=== PATIENT | male | born 1945 | race Two or more races ===

== ENCOUNTER 2024-09-16 07:53 | Inpatient (IN) | payer OTHER, MEDICARE ==
[2024-09-16] VITALS (7 sets, daily range): BP systolic 104–112; BP diastolic 50–54; PULSE 56–82; RESP 25–28; O2SAT 92–99
[~2024-09-16] VITALS: Ht 162.6 cm; Wt 61.2 kg
--- NOTE | 2024-09-16 08:32 | ED.PDOC ---
SOB-HPI HPI Comments 79 year old female brought in by EMS presents to the ED with a chief complaint of shortness of breath. Patient is transferred from [facility] for shortness of breath and elevated Troponin. Patient's initial O2 sat was 80%, was given 2 med neb treatments. PMHx CHF, COPD. No other symptoms or modifying factors present at this time. Chief Complaint: Shortness of Breath Time Seen by MD: 07:58 Reviewed notes: Medications, Allergies Information Source: Patient, Emergency Med Personnel Mode of Arrival: EMS Severity: Moderate Timing: Days Duration: Since onset PE Risk Factors: None History of: COPD, CHF Prehospital treatment: Oxygen, Treatment (med neb) Radiation: No Radiation Past Medical History PAST MEDICAL HISTORY: CHF, COPD Surgical History: Unknown Family History Family History: Unknown Social History Smoker: Non-Smoker Alcohol: Denies ETOH Use Drugs: Denies Drug Use Lives In: Home Constitutional: reports: fatigue; denies: chills, diaphoresis, fever, malaise, sweats, weakness, others EENTM: denies: blurred vision, double vision, ear bleeding, ear discharge, ear drainage, ear pain, ear ringing, eye pain, eye redness, hearing loss, mouth pain, mouth swelling, nasal discharge, nose bleeding, nose congestion, nose pain, photophobia, tearing, throat pain, throat swelling, voice changes, others Respiratory: reports: shortness of breath; denies: cough, hemoptysis, orthopnea, SOB at rest, SOB with excertion, stridor, wheezing, others Cardiovascular: reports: edema (bilateral lower extremeties ); denies: chest pain, dizzy spells, diaphoresis, Dyspnea on exertion, irregular heart beat, left arm pain, lightheadedness, palpitations, PND, syncope, others Gastrointestinal: denies: abdomen distended, abdominal pain, blood streaked bowels, constipated, diarrhea, dysphagia, difficulty swallowing, hematemesis, melena, nausea, poor appetite, poor fluid intake, rectal bleeding, rectal pain, vomiting, others Genitourinary: denies: burning, dysuria, flank pain, frequency, hematuria, incontinence, penile discharge, penile sore, pain, testicle pain, testicle swelling, urgency, others Neurological: denies: dizziness, fainting, headache, left sided numbness, left sided weakness, numbness, paresthesia, pre-existing deficit, right sided numbness, right sided weakness, seizure, speech problems, tingling, tremors, weakness, others Musculoskeletal: denies: back pain, gout, joint pain, joint swelling, muscle pain, muscle stiffness, neck pain, others Integumetry: denies: bruises, change in color, change in hair/nails, dryness, laceration, lesions, lumps, rash, wounds, others Allergic/Immunocompromised: denies: Difficulty Healing, Frequent Infections, Hives, Itching, others Hematologic/Lymphatic: denies: anemia, blood clots, easy bleeding, easy bruising, swollen glands, others Endocrine: denies: excessive hunger, excessive sweating, excessive thirst, excessive urination, flushing, intolerance to cold, intolerance to heat, unexplained weight gain, unexplained weight loss, others Psychiatric: denies: anxiety, bipolar disorder, depression, hopeless, panic disorder, schizophrenia, sleepless, suicidal, others All Other Systems: Reviewed and Negative Physical Exam General Appearance: Moderate Distress HEENT: Normal ENT Inspection, Pharynx Normal, TMs Normal Neck: Full Range of Motion, Non-Tender, Normal, Normal Inspection Respiratory: Accessory Muscle Use, Respiratory Distress, Other (Coarse breath sounds) Cardiovascular: No Edema, No JVD, No Murmur, No Gallop, Normal Peripheral Pulses, Regular Rate/Rhythm Breast Exam: Deferred Gastrointestinal: No Organomegaly, Non Tender, No Pulsatile Mass, Normal Bowel Sounds, Soft Genitalia: Deferred Pelvic: Deferred Rectal: Deferred Extremities: Pedal edema, Swelling (Bilateral lower extremity) Musculoskeletal : Apperance: Normal Neurologic: Alert, layboy tender II-XII nml as Tested, No Motor Deficits, Normal Affect, Normal Mood, No Sensory Deficits Cerebellar Function: NOT DONE Reflexes: NOT DONE Skin: Pallor Peripheral Pulses: 3+ Radial (R), 3+ Radial (L) Lymphatic: No Adenopathy Was a procedure done? Was a procedure done?: No Differential Dx Differential Diagnosis: Anxiety, Asthma, Bronchitis, CHF, COPD X-Ray, Labs, Meds, VS Vital Signs Date Time Temp Pulse Resp B/P (MAP) Pulse Ox O2 Delivery O2 Flow Rate FiO2 09/16/24 10:05 144/77 09/16/24 09:05 82 30 09/16/24 08:20 64 95 Nasal Cannula* 6 44 09/16/24 07:55 125 09/16/24 07:53 Nasal Cannula* 2 28 09/16/24 07:53 98.1 66 16 126/78 (94) 95 09/16/24 07:53 Nasal Cannula* 2 28 Lab Test 09/16/24 10:07 09/16/24 06:40 Range/Units Blood Gas Specimen Type Arterial Blood Gas Sample Site Left radial Blood Gas Patient Temperature 37.0 Arterial Blood Date Drawn [id number] Arterial Blood pH 7.379 7.350-7.450 Arterial Blood Partial Pressure CO2 39.7 35.0-48.0 mmHg Arterial Blood Partial Pressure O2 103.1 83.0-108.0 mmHg Arterial Blood HCO3 22.9 21.0-28.0 mmol/L Arterial Blood Oxygen Saturation 98.2 H 94.0-98.0 % Arterial Blood Base Excess -2.0 -2.0-3.0 mmol/L Arterial Blood Oxyhemoglobin 96.6 94.0-98.0 % Arterial Blood Carboxyhemoglobin 1.1 0.5-1.5 % Arterial Blood Methemoglobin 0.5 0.0-1.5 % Barry Test Yes Blood Gas Total Hemoglobin 14.10 13.5-17.5 g/dL Blood Gas Set Respiration Rate 12.0 Blood Gas Modality Mask - bipap Blood Gas Spontaneous Rate 28 FiO2 % 30.0 Blood Gas EPAP 7 Blood Gas IPAP 12 Troponin I High Sensitivity Pending Current Medications Medications (Trade) Dose Ordered Sig/Wally Route Start Time Stop Time Status Last Admin Furosemide (Lasix Injection) 40 mg ONCE ONCE IV 09/16/24 08:15 09/16/24 08:16 DC 09/16/24 10:05 Patient alert. Complaining of shortness a breath. Came from [facility] for possible NSTEMI. Vitals stable. Currently on oxygen. Was given Lasix. Reviewed his chart. Explained to the patient. Continue cardiac monitoring. Time of 1ST Reevaluation: 08:28 Reevaluation 1ST: Unchanged Patient Education/Counseling: Diagnosis, Treatment, Prognosis Family Education/Counseling: No Family Present Additional Information I reviewed the following notes from patient's past medical encounters: The following tests were ordered, and results were reviewed by me: TROP -x3, EKG -x3, ABG W/ CO-OX Additional Information was gathered from interviewing the following independent historians: EMS I discussed treatment and results with medical personnel and: patient Departure 1 Departure Time of Disposition: 10:31 Impression: Primary Impression: CHF (congestive heart failure) Qualified Codes: I50.43 - Acute on chronic combined systolic (congestive) and diastolic (congestive) heart failure Additional Impression: NSTEMI (non-ST elevated myocardial infarction) Disposition: 09 ADMITTED INPATIENT Admit to: Med Surg Condition: Guarded Critical Care Note Critical Care Time?: Yes (45 min-critical care time only) Stability Stability form required: No Heart Score Heart Score: Heart Score Response (Comments) Value History Slightly Suspicious 0 EKG Normal 0 Age >65 2 Risk Factors >3 or Hx ASHD 2 Troponin 1-2 x's Normal limit 1 Total 5 I personally scribed for ELINA HART MD ([email or web address]) on 09/16/24 at 08:32. Electronically submitted by Lauren Aguilar ([email or web address]). I personally scribed for ELINA HART MD ([email or web address]) on 09/16/24 at 09:11. Electronically submitted by Lauren Aguilar ([email or web address]). ELINA HART MD Sep 16, 2024 08:32
[2024-09-16] MEDS: FUROSEMIDE 40 MG/4 ML VIAL IV ONE (10:05)
--- NOTE | 2024-09-16 10:53 | DVH ---
CHEST RADIOGRAPH Indication: sob Technique: Single frontal view of the chest was obtained COMPARISON: None FINDINGS: Lines and Tubes: Median sternotomy. Lungs: Congestion Pleura: No effusion. No pneumothorax. Cardiomediastinal contours: Unremarkable Bones: Unremarkable IMPRESSION: Congestion
[2024-09-16 11:47] LABS: Urine Bacteria None Seen /hpf (None Seen)
[2024-09-16 12:21] LABS: Urine Blood 2+ /uL (Negative); Urine Clarity Clear (Clear); Urine Color Light-Yellow (Yellow); Urine Protein, UAD Negative (Negative); Urine Specific Gravity 1.014 (1.001-1.035); Urine Squamous Epithelial Cell FEW /hpf (<5); Urine Urobilinogen Normal (Negative); Urine WBC <1 /hpf (0 - 3)
[2024-09-16] MEDS ORDERED: LISI20TA56 PO (13:42)
[2024-09-16] MEDS ORDERED: CLOP75TA70 PO (13:42)
[2024-09-16] MEDS ORDERED: ATOR40TA52 PO (13:42)
[2024-09-16] MEDS ORDERED: ASPI-325 PO (13:42)
[2024-09-16] MEDS ORDERED: MORPHINE SULFATE INJ 2 MG/ml SYRG IV PRN (13:45)
[2024-09-16] MEDS ORDERED: ALBUTEROL SULF 2.5 MG/0.5ML(0.5%) NEB SOLN NEB PRN (13:45)
[2024-09-16] MEDS ORDERED: IPRATROPIUM BROM 0.5 MG/2.5ML INH SOL NEB PRN (13:45)
[2024-09-16] MEDS ORDERED: ONDANSETRON HCL 4 MG/2 ML VIAL IV PRN (13:45)
[2024-09-16] MEDS ORDERED: ACETAMINOPHEN 325 MG TAB PO PRN (13:45)
[2024-09-16] MEDS ORDERED: NITROGLYCERIN 0.4 MG SL TAB SL PRN (13:45)
--- NOTE | 2024-09-16 13:49 | DVHHP2 ---
History of Present Illness Reason for Visit: Shortness of breath History of Present Illness Sofya Flores is a 79-year-old male with past medical history of hypertension, COPD, CHF, [place], CVA with right-sided weakness, seizures, and CAD with status post CABG x2 who presents to the ED as a transfer from [facility] for david rtness of breaths and elevated troponins. Patient was hospitalized yesterday at [facility] for SOB. Upon examination patient has delayed speech but is alert. Patient denies any chest pain, nausea, vomiting, diarrhea, and abdominal pain. Cardiovascular: CAD, CHF, HTN, TN Pulmonary: COPD HOT BLASTER: Seizure Past Medical History Seizure CVA with right-sided weakness Past Surgical History: CABG Smoke: <1 pack per day Domestic Violence: Neg Review of Systems Constitutional: No: Fever, Chills, Sweats, Weakness, Malaise, Other Eyes: No: Pain, Vision change, Conjunctivae inflammation, Eyelid inflammation, Other, Redness ENT: No: Ear pain, Ear discharge, Nose pain, Nose discharge, Nose congestion, Mouth pain, Mouth swelling, Throat pain, Throat swelling, Other Respiratory: Shortness of breath; No: Cough, Dry, SOB with excertion, Wheezing, Hemoptysis, Pleuritic Pain, Sputum, Wheezing, Other Cardiovascular: No: Chest Pain, Palpitations, Orthopnea, Paroxysmal Noc. Dyspnea, Edema, Lt Headedness, Other Gastrointestinal: No: Nausea, Vomiting, Abdominal Pain, Diarrhea, Constipation, Melena, Hematochezia, Other Genitourinary: No Dysuria, No Frequency, No Incontinence, No Hematuria, No Retention, No Other Musculoskeletal: No: other, neck pain, shoulder pain, arm pain, back pain, hand pain, leg pain, foot pain Skin: No: Rash, Lesions, Jaundice, Bruising, Other Allergies: Coded Allergies: Erythromycin (Verified Allergy, Unknown, 09/16/24) Penicillins (Verified Allergy, Unknown, 09/16/24) Tetracycline (Verified Allergy, Unknown, 09/16/24) Exam Vital Signs Vital Signs Date Time Temp Pulse Resp B/P (MAP) Pulse Ox O2 Delivery O2 Flow Rate FiO2 09/16/24 13:00 58 20 125/55 (78) 99 09/16/24 12:12 Facial BiPAP Mask 30 09/16/24 08:20 6 09/16/24 07:53 98.1 General Appearance: Alert, Cooperative, mild distress Respiratory: Normal air movement Cardiovascular: Normal S1, Normal S2, No murmurs Abdominal: Soft Extremities: No clubbing, No cyanosis, Other (2+ pitting edema bilateral lower extremities) Skin: No significant lesion Neuro: Sensation intact Labs/Xrays Labs Test 09/16/24 13:15 09/16/24 11:20 09/16/24 10:07 Range/Units Urine Color Light-yellow Yellow Urine Clarity Clear Clear Urine pH 5.0 5.0-9.0 Urine Specific [place] 1.014 1.001-1.035 Urine Protein Negative Negative Urine Ketones Negative Negative Urine Blood 2+ H Negative /uL Urine Nitrite Negative Negative Urine Bilirubin Negative Negative Urine Urobilinogen Normal Negative mg/dL Urine Leukocyte Esterase Negative Negative /uL Urine RBC 28 0 - 3 /hpf Urine WBC <1 0 - 3 /hpf Urine Squamous Epithelial Cells Few <5 /hpf Urine Bacteria None seen None Seen /hpf Urine Glucose Normal Normal mg/dL Blood Gas Specimen Type Arterial Blood Gas Sample Site Left radial Blood Gas Patient Temperature 37.0 Arterial Blood Date Drawn [id number] Arterial Blood pH 7.379 7.350-7.450 Arterial Blood Partial Pressure CO2 39.7 35.0-48.0 mmHg Arterial Blood Partial Pressure O2 103.1 83.0-108.0 mmHg Arterial Blood HCO3 22.9 21.0-28.0 mmol/L Arterial Blood Oxygen Saturation 98.2 H 94.0-98.0 % Arterial Blood Base Excess -2.0 -2.0-3.0 mmol/L Arterial Blood Oxyhemoglobin 96.6 94.0-98.0 % Arterial Blood Carboxyhemoglobin 1.1 0.5-1.5 % Arterial Blood Methemoglobin 0.5 0.0-1.5 % Barry Test Yes Blood Gas Total Hemoglobin 14.10 13.5-17.5 g/dL Blood Gas Set Respiration Rate 12.0 Blood Gas Modality Mask - bipap Blood Gas Spontaneous Rate 28 FiO2 % 30.0 Blood Gas EPAP 7 Blood Gas IPAP 12 ORDERING PHYSICIAN: ELINA HART MD PROCEDURE(s): CXRP - CHEST PORTABLE REASON: sob ORDER NUMBER(s): [id number], ACCESSION NUMBER(s): [id number] CHEST RADIOGRAPH Indication: sob Technique: Single frontal view of the chest was obtained COMPARISON: None FINDINGS: Lines and Tubes: Median sternotomy. Lungs: Congestion Pleura: No effusion. No pneumothorax. Cardiomediastinal contours: Unremarkable Bones: Unremarkable IMPRESSION: Congestion Assessment/Plan Assessment/Plan Assessment/Plan: Acute on chronic COPD exacerbation vs CHF exacerbation BiPAP Lasix Mims catheter Echo UA Chest x-ray BNP ABG EKG Troponin EKG Labs A.m. labs Chest x-ray a.m. IV steroids Cardiology consult Chronic Hypertension continue home meds History of [place] History of CAD status post CABG x2 Continue home medications History of CVA with right-sided weakness Continue home medications Monitor History of seizure with no recent seizure reported Monitor CVA continue home meds monitor FEN/PPX NPO HL DVT ppx lovenox PUD ppx famotidine Discussed plan of care with nurse Home medications reconciled Admit to tele Plan discussed with: Patient My Orders Orders - MELISSA SOLIZ RAILROAD OPERATOR Procedure Category Date Status Time Abg W/ Co-Ox RT 09/16/24 Transmitted 13:35 Admit ADMIT 09/16/24 Transmitted 13:35 Allergies LUIS CARLOS 09/16/24 Transmitted 13:35 Code Status CODE 09/16/24 Transmitted 13:35 Ondansetron Hcl PHA 09/16/24 Transmitted (Zofran) 13:45 Complete Blood Count LAB 09/17/24 Verified 04:00 Comprehensive LAB 09/17/24 Verified Metabolic Panel 04:00 Npo (Nothing By DIET 09/16/24 Transmitted Mouth) Diet Dinner Enoxaparin Sodium PHA 09/17/24 Transmitted (Lovenox) 10:00 Acetaminophen Tablet PHA 09/16/24 Transmitted (Tylenol Tablet) 13:45 Nitroglycerin PHA 09/16/24 Transmitted Sublingual (Ntrostat 13:45 Morphine Sulfate PHA 09/16/24 Transmitted Injection 13:45 Stat Ekg For Chest [facility] 09/16/24 Transmitted Pain 13:35 Notify Md Of Changes [facility] 09/16/24 Transmitted From Base 13:35 Learning And Development Coordinator For [facility] 09/16/24 Transmitted 24 Hours 13:35 Emergency Dysrhythmia [facility] 09/16/24 Transmitted Protocol 13:35 Rhythm Strips Once [facility] 09/16/24 Transmitted Every Shift 13:35 Oxygen By Nasal RT 09/16/24 Transmitted Cannula 13:35 Albuterol Medneb PHA 09/16/24 Transmitted (Ventolin Medneb) 18:00 Albuterol Medneb PHA 09/16/24 Transmitted (Ventolin Medneb) 13:45 Ipratropium Medneb PHA 09/16/24 Transmitted (Atrovent Medneb) 18:00 Ipratropium Medneb PHA 09/16/24 Transmitted (Atrovent Medneb) 13:45 Date of Service: Sep 16, 2024 Billing Provider: MELISSA SOLIZ Common Visit Codes: [id number] INP/OBS CARE (HIGH) MELISSA SOLIZ Sep 16, 2024 13:49
[2024-09-16 13:55] LABS: Basophils # (auto) 0 10 ^3/uL (0-0.2); Basophils % (auto) 0.2 % (0.0-2.0); Eosinophils # (auto) 0 10 ^3/uL (0-0.8); Hematocrit 39.9 % (41.0-53.0); Hemoglobin 12.7 g/dL (13.5-17.5); Lymphocytes # (auto) 0.5 10 ^3/uL (0.4-5.4); Lymphocytes % (auto) 3.1 % (10.0-50.0); Mean Corpuscular Hemoglobin 27.2 pg (28.0-32.0); Mean Corpuscular Hgb Conc. 31.9 g/dL (32.0-36.0); Mean Corpuscular Volume 85.2 fL (80.0-100.0); Monocytes # (auto) 0.6 10 ^3/uL (0-1.3); Monocytes % (auto) 3.9 % (0.0-12.0); Neutrophils # (auto) 14.6 10 ^3/uL (1.6-8.6); Neutrophils % (auto) 92.8 % (37.0-80.0); Nucleated Red Blood Cells % 0.1 %; Platelet Count (auto) 249 10^3/uL (140-450); Red Blood Cells 4.69 10^6/uL (4.5-5.90); Red Cell Distribution Width 17.2 % (11.8-14.3); White Blood Cell 15.8 10^3/uL (4.4-10.8)
[2024-09-16 14:17] LABS: Chloride 104 mmol/L (98-107); Potassium 4.2 mmol/L (3.5-5.1); Sodium 140 mmol/L (136-145)
[2024-09-16 14:18] LABS: Anion Gap 9 (5-15); Carbon Dioxide 27 mmol/L (20-31)
[2024-09-16 14:22] LABS: Calcium 8.6 mg/dL (8.7-10.4)
[2024-09-16 14:23] LABS: BUN/Creatinine Ratio 25.8 (10.0-20.0)
[2024-09-16 14:24] LABS: Blood Urea Nitrogen 33 mg/dL (9-23); Glucose 142 mg/dL (74-106)
[2024-09-16 14:37] LABS: Base Excess 1.1 mmol/L (-2.0-3.0)
[2024-09-16] MEDS: ENOXAPARIN SOD 40 MG/0.4 ML SYRINGE SC ONE (15:49)
--- NOTE | 2024-09-16 16:36 | DVHSR ---
APPROVED REPORT EXAM: Two-dimensional and M-mode echocardiogram with Doppler and color Doppler. Blood Pressure: 144/77 mmHg INDICATION EF Surgery/Intervention CABG: RISK FACTORS Height: 5'6", Weight: 134 DIMENSIONS LVDd5.7 (3.8-5.7cm)LA (2D)4.3 (1.9-4.0cm)Aortic Root3.6 (2.0-3.7cm) LVDs5.3 (2.5-4.0cm)LA (MM) (1.9-4.0cm)Aortic Cusp Exc2.1 (1.5-2.0cm) EF (%) 20.0 (55-70%)Rt. Atrium5.6 (1.9-4.0cm)Asc. Aorta cm IVSd1.1 (0.7-1.1cm)RV (D)4.9 (1.8-2.4cm) PWd1.1 (0.7-1.1cm) Mitral Valve MitralMitral Stenosis E wave0.76m/sMV Mean GR.mmHg A wave0.32m/sMV Peak GR.mmHg E/A ratio2.42D MVAcm2 DECEL [id number] 1/2 Timems Aortic Valve Aortic ValveAortic Stenosis V10.88m/Radha Mean GR.4mmHg V21.34m/Radha Peak GR.7mmHg LVOT Diameter2.5 (1.8-2.4cm)Doppler AVA3.22cm2 Pulmonic Valve V20.96m/s Tricuspid Valve TR Velocity3.08m/s [id number] Conclusion severe chf lvef 20-25% by visual estimate dilated LV dilated RV< with dsyfunction noted biatrial enlargement moderate tricuspid regurg mild to moderate mitral regurg mild aortic regurg
[2024-09-16] MEDS: IPRATROPIUM BROM 0.5 MG/2.5ML INH SOL NEB SCH (18:53)
[2024-09-16] MEDS: ALBUTEROL SULF 2.5 MG/0.5ML(0.5%) NEB SOLN NEB SCH (18:54)
[2024-09-16] MEDS: methylPREDNISolone SOD SUCC 40 MG/ML VL IV SCH (22:56)
[2024-09-17] VITALS (15 sets, daily range): BP systolic 120–153; BP diastolic 59–82; PULSE 60–75; RESP 16–20; TEMP 97.7–98.8; O2SAT 73–100
--- NOTE | 2024-09-17 05:44 | DVH ---
CHEST RADIOGRAPH Indication: sob Technique: Single frontal view of the chest was obtained COMPARISON: XY CHEST PORTABLE on DOS: 09/16/24 FINDINGS: Lines and Tubes: Median sternotomy Lungs: Congestion Pleura: No effusion. No pneumothorax. Cardiomediastinal contours: Cardiomegaly Bones: Unremarkable IMPRESSION: Mild congestion, unchanged
[2024-09-17 06:57] LABS: Basophils # (auto) 0 10 ^3/uL (0-0.2); Basophils % (auto) 0.1 % (0.0-2.0); Eosinophils # (auto) 0 10 ^3/uL (0-0.8); Hematocrit 37.5 % (41.0-53.0); Hemoglobin 12.1 g/dL (13.5-17.5); Lymphocytes # (auto) 0.4 10 ^3/uL (0.4-5.4); Lymphocytes % (auto) 1.9 % (10.0-50.0); Mean Corpuscular Hemoglobin 27.2 pg (28.0-32.0); Mean Corpuscular Hgb Conc. 32.2 g/dL (32.0-36.0); Mean Corpuscular Volume 84.6 fL (80.0-100.0); Monocytes # (auto) 0.8 10 ^3/uL (0-1.3); Monocytes % (auto) 3.6 % (0.0-12.0); Neutrophils # (auto) 20.6 10 ^3/uL (1.6-8.6); Neutrophils % (auto) 94.4 % (37.0-80.0); Platelet Count (auto) 264 10^3/uL (140-450); Red Blood Cells 4.44 10^6/uL (4.5-5.90); Red Cell Distribution Width 17.2 % (11.8-14.3); White Blood Cell 21.8 10^3/uL (4.4-10.8)
[2024-09-17 07:23] LABS: Alanine Aminotransferase 33 U/L (7-40); Anion Gap 8 (5-15); BUN/Creatinine Ratio 32.5 (10.0-20.0); Carbon Dioxide 28 mmol/L (20-31); Potassium 4.5 mmol/L (3.5-5.1); Sodium 143 mmol/L (136-145)
[2024-09-17 07:31] LABS: Alkaline Phosphatase 210 U/L (46-116); Aspartate Aminotransferase 45 U/L (13-40); Blood Urea Nitrogen 40 mg/dL (9-23); Calcium 8.5 mg/dL (8.7-10.4); Chloride 107 mmol/L (98-107); Glucose 123 mg/dL (74-106)
[2024-09-17 07:32] LABS: Albumin 2.9 g/dL (3.2-4.8); Bilirubin, Total 1.3 mg/dL (0.2-1.0); Total Protein 5.6 g/dL (5.7-8.2)
[2024-09-17] MEDS ORDERED: PNEUMOCOCCAL VACC POLYS 25 MCG/0.5 ML VIAL IM ONE (10:00)
[2024-09-17] MEDS ORDERED: ENOXAPARIN SOD 40 MG/0.4 ML SYRINGE SC SCH (10:00)
[2024-09-17] MEDS ORDERED: levoFLOXacin 250 MG TAB PO SCH (10:00)
[2024-09-17] MEDS: FAMOTIDINE (10MG/ML) 2ML VL IV SCH (10:34)
[2024-09-17] MEDS: FUROSEMIDE 40 MG/4 ML VIAL IV SCH (10:35)
--- NOTE | 2024-09-17 12:22 | DVHPN2 ---
Subjective Reports sob and ble swelling. Reviewed: Care Plan, Labs, Medications Changes from previous H/P or p: No Changes General: Per HPI Eyes: No Pain, No Vision change, No Conjunctivae inflammation, No Eyelid inflammation, No Other, No Redness ENT: No Ear pain, No Ear discharge, No Nose pain, No Nose discharge, No Nose congestion, No Mouth pain, No Mouth swelling, No Throat pain, No Throat swelling, No Other Cardiovascular: No Chest Pain, No Palpitations, No Orthopnea, No Paroxysmal Noc. Dyspnea, No Edema, No Lt Headedness, No Other Respiratory: No Cough, No Dry; Shortness of breath; No SOB with excertion, No Wheezing, No Hemoptysis, No Pleuritic Pain, No Sputum, No Other Gastrointestinal: No Nausea, No Vomiting, No Abdominal Pain, No Diarrhea, No Constipation, No Melena, No Hematochezia, No Other Genitourinary: No Dysuria, No Frequency, No Incontinence, No Hematuria, No Retention, No Other Musculoskeletal: No other, No neck pain, No shoulder pain, No arm pain, No back pain, No hand pain, No leg pain, No foot pain Skin: No Rash, No Lesions, No Jaundice, No Bruising, No Other Objective Vitals Vital Signs Date Time Temp Pulse Resp B/P (MAP) Pulse Ox O2 Delivery O2 Flow Rate FiO2 09/17/24 11:48 97.8 64 18 153/64 (93) 97 97.8 09/17/24 11:21 Nasal Cannula* 3 32 Intake/Output Intake and Output 09/17/24 07:00 Intake Total 0 ml Output Total 3000 ml Balance -3000 ml Intake Oral 0 ml Output Urine Total 3000 ml General Appearance: Alert, Oriented X3, Cooperative, No acute distress HEENT: Atraumatic, PERRLA Lungs: Clear to auscultation, Normal air movement Cardiovascular: Normal S1, Normal S2 Abdomen: Normal bowel sounds, Soft, No tenderness, No hepatospenomegaly Genitourinary: No Apparent Abnormalities Extremities: Normal pulses, Other (Edema BLE) Skin: Dry, Intact Psych/Mental Status: Mental status NL, Mood NL Medications Current Medications Medications Dose Ordered Sig/Wally Route Start Time Stop Time Status Last Admin Dose Admin Ondansetron HCl 4 mg Q4HP PRN IV 09/16/24 13:45 Enoxaparin Sodium 40 mg DAILY SC 09/17/24 10:00 Hold Acetaminophen 650 mg Q6HP PRN PO 09/16/24 13:45 Nitroglycerin 0.4 mg Q5MINP PRN SL 09/16/24 13:45 Morphine Sulfate 2 mg Q30M PRN IV 09/16/24 13:45 Albuterol 2.5 mg Q6HWA NEB 09/16/24 18:00 09/17/24 11:21 2.5 MG Albuterol 2.5 mg Q4HPRN PRN NEB 09/16/24 13:45 Ipratropium [place] 0.5 mg Q6HWA NEB 09/16/24 18:00 09/17/24 11:21 0.5 MG Ipratropium [place] 0.5 mg Q4HPRN PRN NEB 09/16/24 13:45 Furosemide 40 mg DAILY IV 09/17/24 10:00 09/17/24 10:35 40 MG Famotidine 20 mg DAILY IV 09/17/24 10:00 09/17/24 10:34 20 MG Levofloxacin/ Dextrose 100 ml @ 100 mls/hr DAILY IV 09/18/24 10:00 UNV Laboratory Results Laboratory Tests 09/17/24 06:17 Chemistry Test 09/16/24 13:15 09/17/24 06:17 Calcium Level 8.6 mg/dL (8.7-10.4) L 8.5 mg/dL (8.7-10.4) L Albumin 2.9 g/dL (3.2-4.8) L Total Protein 5.6 g/dL (5.7-8.2) L Cardiac Markers Test 09/16/24 13:15 B-Type Natriuretic Peptide 4786.70 pg/mL (0-100) LFT Test 09/17/24 06:17 Alanine Aminotransferase (ALT) 33 U/L (7-40) Alkaline Phosphatase 210 U/L (46-116) H Aspartate Amino Transferase (AST) 45 U/L (13-40) H Total Bilirubin 1.3 mg/dL (0.2-1.0) H Urinalysis Test 09/16/24 11:20 Urine Color Light-yellow (Yellow) Urine Clarity Clear (Clear) Urine pH 5.0 (5.0-9.0) Urine Specific [place] 1.014 (1.001-1.035) Urine Protein Negative (Negative) Urine Ketones Negative (Negative) Urine Blood 2+ /uL (Negative) H Urine Nitrite Negative (Negative) Urine Bilirubin Negative (Negative) Urine Urobilinogen Normal mg/dL (Negative) Urine Leukocyte Esterase Negative /uL (Negative) Urine RBC 28 /hpf (0 - 3) Urine WBC <1 /hpf (0 - 3) Urine Squamous Epithelial Cells Few /hpf (<5) Urine Bacteria None seen /hpf (None Seen) Urine Glucose Normal mg/dL (Normal) Blood Gas Results Test 09/16/24 14:32 Arterial Blood pH 7.438 (7.350-7.450) FiO2 % 30.0 Labs and/or images reviewed: Labs reviewed by me, Image(s) reviewed by me Assessment/Plan Assessment/Plan Impression: -Acute systolic HF -Hx of CAD with CABG 2014 -NSTEMI II -Nicotine dependence -Marijuana use -Dyslipidemia -Rule out Sepsis -Acute hypoxic respiratory failure Plan: -Cardiology Consult -Echo reviewed -Start Entresto, Toprol -IV Lasix -Start Levaquin -Bronchodilators, pulmicort -Repeat labs, cxray in am Total time spent with patient discussing and formulating plan of care: 35 minutes. This medical document was created using an electronic medical record system with [employer] Mess[employer] dictation system. Although this document has been carefully reviewed, there may still be some phonetic and typographical errors. These areas are purely typographical due to imperfections of the software programs, and do not reflect any compromise in the patient's medical care. Plan discussed with: Patient, Other (RN) My Orders Orders - MARBELLA BUSCH MATTRESS INSPECTOR Procedure Category Date Status Time Cardiac DIET 09/17/24 Transmitted Diet-2gna,Lofat,Lochol Lunch Levofloxacin 500mg PHA 09/18/24 Logged (Levaquin 500mg/ 100m 10:00 LIVER US 09/17/24 Verified 12:08 Levofloxacin Tablet PHA 09/17/24 Verified (Levaquin Tablet) 12:15 Budesonide PHA 09/17/24 Verified (Inhalation) 22:00 Basic Metabolic Panel LAB 09/18/24 Verified 04:00 Complete Blood Count LAB 09/18/24 Verified 04:00 Metoprolol Xl PHA 09/18/24 Verified Succinate (Toprol Xl) 10:00 Sacubitril-Valsartan PHA 09/17/24 Verified (Entresto 24-26 Mg 22:00 Chest Xray 1 View XY 09/18/24 Verified 04:00 Date of Service: Sep 17, 2024 Billing Provider: MARBELLA BUSCH NP Common Visit Codes: [id number] INP/OBS CARE(HIGH) MARBELLA BUSCH NP Sep 17, 2024 12:22
--- NOTE | 2024-09-17 12:43 | DVHINCON2 ---
Date Seen: Sep 17, 2024 Referring Physician TORSTEN Velasco Reason for Consultation CHF History of Present Illness This is a 79-year-old male transferred to our facility from [facility] for higher-level of care given NSTEMI status. The patient presented to the aforementioned facility on 09/15/2024 with a chief complaint shortness of breath associated with nausea, vomiting, diarrhea, nasal congestion, worsening chronic cough, and RLE edema. Per patient, the symptoms occurred after smoking a cigarette for which he self administered a breathing treatment without relief of symptoms prompting him to call 911. Upon EMS arrival he was found with an oxygen saturation of 80% on room air for which he received subsequent breathing treatments x2 with improved oxygen saturations. Upon arrival to the emergency room he underwent a 12 lead electrocardiogram revealing an atrial fibrillation rhythm at a controlled rate. Studies from previous facility are as follow: Troponin levels 0.14-0.12-0.11 ng/mL, RLE venous US negative for DVT, CT angio chest negative for PE with findings of cardiomegaly and suggestive of CHF, CXR unremarkable, and influenza A&B negative. The patient admits poor medical compliance with medical therapy and quitting methamphetamine use two weeks ago. Denies following up with a primary color drum worker in the outpatient setting. Past medical history includes coronary artery disease status post double-vessel CABG at an unspecified [facility] in [place] on 2014, congestive heart failure, unspecified atrial fibrillation off medical therapy, history of CVA with right- sided hemiparesis, COPD with current tobacco use and off O2, hypertension, dyslipidemia, seizure activity, suicide attempt, recent history of methamphetamine use, cannabinoid use, and smoking exposure history of 31.5 pack years. Past Medical History Past medical history reviewed. No other significant than mentioned above. Past Surgical History Double vessel CABG, 2014 Family History: FH: heart disease G8 FATHER Family History Family history reviewed. Social History See HPI. Allergies: Coded Allergies: Erythromycin (Verified Allergy, Unknown, 09/16/24) Penicillins (Verified Allergy, Unknown, 09/16/24) Tetracycline (Verified Allergy, Unknown, 09/16/24) Home Meds Reported Medications Clopidogrel Bisulfate (CLOPIDOGREL) 75 Mg Tab, 1 TAB PO DAILY 09/16/24 Aspirin (Aspirin Low Dose) 81 Mg Tab, 1 TAB PO DAILY 09/16/24 Atorvastatin Calcium (ATORVASTATIN CALCIUM) 40 Mg Tab, 1 TAB PO 09/16/24 Lisinopril (Lisinopril) 20 Mg Tab, 1 TAB PO DAILY 09/16/24 Home Meds Home medications reviewed. Current Medications Current Medications Medications (Trade) Dose Ordered Sig/Wally Route PRN Reason Start Time Stop Time Status Last Admin Ondansetron HCl (Zofran) 4 mg Q4HP PRN IV NAUSEA / VOMITING 09/16/24 13:45 Enoxaparin Sodium (Lovenox) 40 mg DAILY SC 09/17/24 10:00 Hold Acetaminophen (Tylenol Tablet) 650 mg Q6HP PRN PO PAIN SCALE 1-3 OR TEMP>100.4 09/16/24 13:45 Nitroglycerin (Ntrostat Sublingual) 0.4 mg Q5MINP PRN SL FOR CHEST PAIN 09/16/24 13:45 Morphine Sulfate 2 mg Q30M PRN IV FOR CHEST PAIN 09/16/24 13:45 Albuterol (Ventolin Medneb) 2.5 mg Q6HWA NEB 09/16/24 18:00 09/17/24 11:21 Albuterol (Ventolin Medneb) 2.5 mg Q4HPRN PRN NEB SHORTNESS OF BREATH 09/16/24 13:45 Ipratropium Niot[place] (Atrovent Medneb) 0.5 mg Q6HWA NEB 09/16/24 18:00 09/17/24 11:21 Ipratropium Niotaze (Atrovent Medneb) 0.5 mg Q4HPRN PRN NEB SHORTNESS OF BREATH 09/16/24 13:45 Furosemide (Lasix Injection) 40 mg DAILY IV 09/17/24 10:00 09/17/24 10:35 Methylprednisolone Sodium Succinate (Solu Medrol) 40 mg BID IV 09/16/24 22:00 09/17/24 10:37 DC 09/17/24 10:34 Famotidine (Pepcid Injection) 20 mg DAILY IV 09/17/24 10:00 09/17/24 10:34 Levofloxacin/ Dextrose 100 ml @ 100 mls/hr DAILY IV 09/18/24 10:00 09/17/24 12:16 DC Levofloxacin (Levaquin Tablet) 750 mg DAILY PO 09/17/24 12:15 UNV Budesonide (Pulmicort) 0.5 mg BID NEB 09/17/24 22:00 UNV Metoprolol Succinate (Toprol Xl) 25 mg DAILY PO 09/18/24 10:00 UNV Sacubitril/ Valsartan (Entresto 24-26 Mg tab) 0.5 tab BID PO 09/17/24 22:00 UNV Review of Systems Constitutional: No symptom reported Ears, Nose, & Throat: No symptom reported Eyes: No symptom reported Neurological: No symptoms reported Pulmonary/Respiratory: SOB, worsening cough Cardiovascular: No symptom reported Gastrointestinal: N/V/D Genitourinary: No symptom reported Musculoskeletal: RLE edema Skin: No symptom reported Psychiatric: No symptom reported Endocrine: No symptom reported Hemotologic/Lymphatic: No symptom reported Vital Signs Vital Signs Date Time Temp Pulse Resp B/P (MAP) Pulse Ox O2 Delivery O2 Flow Rate FiO2 09/17/24 11:48 97.8 64 18 153/64 (93) 97 97.8 09/17/24 11:21 Nasal Cannula* 3 32 Physical Exam General Appearance: Cooperative. Disheveled. [id number] acute respiratory distress Head Exam: Normal inspection Neck Exam: Normal inspection. Non-tender. Normal alignment Pulmonary/Respiratory: Audible wheezing & bilateral crackles Cardiovascular/Chest: Irregularly irregular rate and rhythm. AFib controlled rate. No murmurs. No JVD. Peripheral Pulses: 2+ Radial (R). 2+ Radial (L). 2+ Pedal (R). 2+ Pedal (L) Abdominal Exam: Normal bowel sounds. Soft. Nontender. Ankle Exam: Positive ankle edema Lower extremities: Positive lower extremity edema R>L, ++ Neuro/Mental Status: A&O x3. Coherent Thoughts/Psych: Normal thought pattern. Appropriate mood and affect. Cooperative Appearance: Mild to moderate acute respiratory distress Skin Exam: Normal inspection. Normal color. Warm. Dry Labs/Diagnostic Data Labs Test 09/17/24 06:17 09/16/24 16:07 09/16/24 14:32 09/16/24 13:15 Range/Units White Blood Count 21.8 #H 4.4-10.8 10^3/uL Red Blood Count 4.44 L 4.5-5.90 10^6/uL Hemoglobin 12.1 L 13.5-17.5 g/dL Hematocrit 37.5 L 41.0-53.0 % Mean Corpuscular Volume 84.6 80.0-100.0 fL Mean Corpuscular Hemoglobin 27.2 L 28.0-32.0 pg Mean Corpuscular Hemoglobin Concent 32.2 32.0-36.0 g/dL Red Cell Distribution Width 17.2 H 11.8-14.3 % Platelet Count 264 140-450 10^3/uL Mean Platelet Volume 8.1 6.9-10.8 fL Neutrophils (%) (Auto) 94.4 H 37.0-80.0 % Lymphocytes (%) (Auto) 1.9 L 10.0-50.0 % Monocytes (%) (Auto) 3.6 0.0-12.0 % Eosinophils (%) (Auto) 0.0 0.0-7.0 % Basophils (%) (Auto) 0.1 0.0-2.0 % Neutrophils # (Auto) 20.6 H 1.6-8.6 10 ^3/uL Lymphocytes # (Auto) 0.4 0.4-5.4 10 ^3/uL Monocytes # (Auto) 0.8 0-1.3 10 ^3/uL Eosinophils # (Auto) 0 0-0.8 10 ^3/uL Basophils # (Auto) 0 0-0.2 10 ^3/uL Nucleated Red Blood Cells 0.0 % Sodium Level 143 136-145 mmol/L Potassium Level 4.5 3.5-5.1 mmol/L Chloride Level 107 98-107 mmol/L Carbon Dioxide Level 28 20-31 mmol/L Anion Gap 8 5-15 Blood Urea Nitrogen 40 H 9-23 mg/dL Creatinine 1.23 0.700-1.30 mg/dL Glomerular Filtration Rate Calc 60 >90 mL/min BUN/Creatinine Ratio 32.5 H 10.0-20.0 Serum Glucose 123 H 74-106 mg/dL Calcium Level 8.5 L 8.7-10.4 mg/dL Total Bilirubin 1.3 H 0.2-1.0 mg/dL Aspartate Amino Transferase (AST) 45 H 13-40 U/L Alanine Aminotransferase (ALT) 33 7-40 U/L Alkaline Phosphatase 210 H 46-116 U/L Total Protein 5.6 L 5.7-8.2 g/dL Albumin 2.9 L 3.2-4.8 g/dL Troponin I High Sensitivity 85 *H </=54 ng/L Blood Gas Specimen Type Arterial Blood Gas Sample Site Right radial Blood Gas Patient Temperature 37.0 Arterial Blood Date Drawn [id number] Arterial Blood pH 7.438 7.350-7.450 Arterial Blood Partial Pressure CO2 38.0 35.0-48.0 mmHg Arterial Blood Partial Pressure O2 66.4 L 83.0-108.0 mmHg Arterial Blood HCO3 25.1 21.0-28.0 mmol/L Arterial Blood Oxygen Saturation 92.6 L 94.0-98.0 % Arterial Blood Base Excess 1.1 -2.0-3.0 mmol/L Arterial Blood Oxyhemoglobin 90.9 L 94.0-98.0 % Arterial Blood Carboxyhemoglobin 1.4 0.5-1.5 % Arterial Blood Methemoglobin 0.4 0.0-1.5 % Barry Test Modified Blood Gas Total Hemoglobin 13.50 13.5-17.5 g/dL Blood Gas Modality Mask - bipap FiO2 % 30.0 Blood Gas Pressure Support 5 Blood Gas EPAP 7 Blood Gas IPAP 12 B-Type Natriuretic Peptide 4786.70 0-100 pg/mL Test 09/16/24 11:20 09/16/24 10:07 Range/Units Urine Color Light-yellow Yellow Urine Clarity Clear Clear Urine pH 5.0 5.0-9.0 Urine Specific [place] 1.014 1.001-1.035 Urine Protein Negative Negative Urine Ketones Negative Negative Urine Blood 2+ H Negative /uL Urine Nitrite Negative Negative Urine Bilirubin Negative Negative Urine Urobilinogen Normal Negative mg/dL Urine Leukocyte Esterase Negative Negative /uL Urine RBC 28 0 - 3 /hpf Urine WBC <1 0 - 3 /hpf Urine Squamous Epithelial Cells Few <5 /hpf Urine Bacteria None seen None Seen /hpf Urine Glucose Normal Normal mg/dL Blood Gas Set Respiration Rate 12.0 Blood Gas Spontaneous Rate 28 Assessment Acute on chronic decompensated HFrEF, NYHA Class III 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 Ch): * Echocardiogram revealed EF 20-25% * Dilated LV/RV. Biatrial enlargement. Moderate tricuspid regurgitation * Single-antiplatelet therapy and lipid lowering agent * Rate control, beta-katerina * Therapeutic Lovenox BID. Transition to DOAC when appropriate * [id number] Score 7 points. HAS-BLED Score 3 points * GDMT for CHF as renal function permits * Add mineralcorticoid and SGLT2i per BUN trend * Preload and afterload reduction * Strict I&Os. Daily weight. Fluid restrictions * Nicotine patch. Obtain UDS Patient seen and evaluated by Dr. Ch. Patient is to follow-up with a primary color drum worker as an outpatient within 1-2 weeks post-discharge. In the setting of medical compliance, the patient could benefit from ischemic work-up and may qualify for an ICD implantation. In the meantime, we will continue conservative management and maximize medical therapy. Thank you for allowing us to participate in this patient's care. Please call if you have any questions or concerns. Critical care time: 40 min. This medical document was created using an electronic medical record system with voice recognition software and computerized dictation system. Although this document has been carefully reviewed, there might still be some phonetic and typographical errors. Occasional wrong-word or ``sound-alike substitutions may have occurred due to the inherent limitations of voice recognition software. These areas are purely typographical due to imperfections of the software programs and do not reflect any compromise in the patient's medical care. Please read the chart carefully and recognize, using context, where these substitutions have occurred. Plan discussed with: Patient, Other NYHA Physical activity limitations: Class3(Marked) ordinary (activity causes symtoms) Date of Service: Sep 17, 2024 Billing Provider: MIKE CH MD Cardiology Common Codes: 54219-[id number] CARE 30-74 MIN BARB ELAM [facility] Sep 17, 2024 12:43
[2024-09-17 13:55] LABS: Magnesium 2.1 mg/dL (1.6-2.6)
[2024-09-17] MEDS ORDERED: ENOXAPARIN SOD 80 MG/0.8ML SYRINGE SC SCH (14:00)
[2024-09-17] MEDS: ENOXAPARIN SOD 80 MG/0.8ML SYRINGE SC ONE (14:20)
[2024-09-17] MEDS: levoFLOXacin 250 MG TAB PO SCH (14:21)
--- NOTE | 2024-09-17 14:26 | DVH ---
INDICATION: elevated LFts TECHNIQUE: Multiple real-time sonographic images of the abdomen were obtained. 57 images COMPARISON: None FINDINGS: Hepatic parenchyma appears echogenic and lobulated. The liver measures 13.85 cm. No intrah epatic biliary ductal dilatation is noted. Ascites and bilateral pleural effusions are noted The gallbladder wall measures 0.52 cm and is thickened. No gallstones or sludge is seen. The commo n duct measures 0.46 cm and is unremarkable. No pericholecystic fluid is noted. Negative ultrasound Martinez's sign is elicited The right kidney measures 8.78 cm. No hydronephrosis. The pancreas is normal The visualized portions of the IVC and aorta are grossly unremarkable. IMPRESSION: 1. Liver measures 13.9 cm appears echogenic with cirrhotic liver changes. 2. Fluid is noted in the right and left upper abdomen. 3. Bilateral pleural effusions are noted 4. Gallbladder wall is thickened and measures 5.3 mm which may be secondary to the ascites.
[2024-09-17 15:05] LABS: Cannabinoid Screen, Urine Pos (NEGATIVE)
[2024-09-17 15:07] LABS: Amphetamine Screen, Urine Neg (NEGATIVE); Barbiturate Scree,Urine Neg (NEGATIVE); Benzodiazephine Screen, Urine Neg (NEGATIVE); Cocaine Screen, Urine Neg (NEGATIVE); Opiate Scree,Urine Neg (NEGATIVE); Phencyclidine Screen, Urine Neg (NEGATIVE)
--- NOTE | 2024-09-17 15:20 | ECG ---
[facility] Test Date: 2024-09-16 Test Time: 07:52:00 Pat Name: MARK GARCIA Department: ER Room: 0283T Gender: M Hospital Liaison: GEORGE : 1945 Requested By: ELINA HART Order Number: [id number] Reading MD: Angel Hardin Measurements Intervals [place] Rate: 69 P: 0 PA: 45 QRS: -85 QRSD: 138 T: 112 QT: 426 QTc: 457 Interpretive Statements Sinus rhythm Short PA interval Probable left atrial enlargement Nonspecific IVCD with LAD Left ventricular hypertrophy Anterior Q waves, possibly due to LVH Nonspecific T abnormalities, lateral leads ST elevation, consider inferior injury Artifact in lead(s) I,III,aVR,aVL,V2 Electronically Signed On 09-18-2024 10:17:43 PST by Angel Hardin Please click the below link to view image of tracing.
[2024-09-17] MEDS: ASPirin 81 mg TAB PO ONE (15:38)
[2024-09-17] MEDS: NICOTINE 14 MG/24HR TOPICAL PATCH TD ONE (15:39)
[2024-09-17] MEDS ORDERED: VANCOMYCIN PER PHARMACY 0 MG IV SCH (17:15)
[2024-09-17] MEDS: BUDESONIDE (INHALATION) 0.5 MG/2 ML NEB NEB SCH (19:18)
[2024-09-17] MEDS: ATORVASTATIN 20 MG TAB PO SCH (21:15)
[2024-09-17] MEDS: VANCOMYCIN 1GM/250ML KIT 250 ML IV SCH (21:16)
[2024-09-17] MEDS: SACUBITRIL-VALSARTAN 24mg/26mg TAB PO SCH (21:16)
[2024-09-17] MEDS: MUPIROCIN 2% OINT 15gm or 22gm FOR MRSA NARES EACHNOSTRI SCH (21:26)
[2024-09-18] VITALS (15 sets, daily range): BP systolic 101–141; BP diastolic 51–99; PULSE 52–94; RESP 16–21; TEMP 97.5–98; O2SAT 90–100
--- NOTE | 2024-09-18 06:32 | DVH ---
CHEST RADIOGRAPH Indication: chf Technique: Single frontal view of the chest was obtained Comparison: XY CHEST XRAY 1 VIEW on DOS: 09/17/24 FINDINGS: Lines and Tubes: None Lungs: Pulmonary vascular congestion. Pleura: Left pleural effusion. No pneumothorax. Cardiomediastinal contours: Unremarkable Bones: No acute osseous abnormality. Status post median sternotomy. IMPRESSION: 1. Pulmonary congestion and left pleural effusion.
[2024-09-18 07:08] LABS: Basophils # (auto) 0 10 ^3/uL (0-0.2); Basophils % (auto) 0.1 % (0.0-2.0); Eosinophils # (auto) 0 10 ^3/uL (0-0.8); Monocytes # (auto) 0.9 10 ^3/uL (0-1.3); White Blood Cell 17.1 10^3/uL (4.4-10.8)
[2024-09-18 07:13] LABS: Hematocrit 35.6 % (41.0-53.0); Hemoglobin 11.3 g/dL (13.5-17.5); Lymphocytes # (auto) 0.4 10 ^3/uL (0.4-5.4); Lymphocytes % (auto) 2.1 % (10.0-50.0); Mean Corpuscular Hemoglobin 26.7 pg (28.0-32.0); Mean Corpuscular Hgb Conc. 31.8 g/dL (32.0-36.0); Mean Corpuscular Volume 83.8 fL (80.0-100.0); Monocytes % (auto) 5.3 % (0.0-12.0); Neutrophils # (auto) 15.9 10 ^3/uL (1.6-8.6); Neutrophils % (auto) 92.5 % (37.0-80.0); Nucleated Red Blood Cells % 0.1 %; Platelet Count (auto) 244 10^3/uL (140-450); Red Blood Cells 4.25 10^6/uL (4.5-5.90); Red Cell Distribution Width 17.4 % (11.8-14.3)
--- NOTE | 2024-09-18 07:16 | ECG ---
[facility] Test Date: 2024-09-16 Test Time: 07:55:30 Pat Name: MARK GARCIA Department: ER Room: [facility]3T A Gender: M [employer] Tr[employer]: GEORGE : 1945 Requested By: ELINA HART Order Number: [id number] Reading MD: Angel Hardin Measurements Intervals [place] Rate: 125 P: 0 SC: 0 QRS: -65 QRSD: 147 T: 145 QT: 368 QTc: 531 Interpretive Statements Atrial fibrillation Paired ventricular premature complexes Nonspecific IVCD with LAD Left ventricular hypertrophy Anterior Q waves, possibly due to LVH Abnormal T, consider ischemia, lateral leads Electronically Signed On 09-18-2024 10:18:24 PST by Angel Hardin Please click the below link to view image of tracing.
[2024-09-18 07:34] LABS: Anion Gap 6 (5-15); Carbon Dioxide 27 mmol/L (20-31); Chloride 102 mmol/L (98-107); Potassium 4.5 mmol/L (3.5-5.1); Sodium 135 mmol/L (136-145)
[2024-09-18 07:36] LABS: Calcium 8.1 mg/dL (8.7-10.4)
[2024-09-18 07:40] LABS: BUN/Creatinine Ratio 33.3 (10.0-20.0)
[2024-09-18 07:47] LABS: Blood Urea Nitrogen 43 mg/dL (9-23); Glucose 138 mg/dL (74-106)
[2024-09-18] MEDS ORDERED: levoFLOXacin 500MG 100 ML IV SCH (10:00)
[2024-09-18] MEDS: ASPirin 81 mg TAB PO SCH (10:42)
[2024-09-18] MEDS: ENOXAPARIN SOD 80 MG/0.8ML SYRINGE SC SCH (10:42)
[2024-09-18 10:43] LABS: Hepatitis B Surface Antigen Negative (Negative)
[2024-09-18] MEDS: METOPROLOL SUCCINATE XL 50 MG TAB PO SCH (10:43)
[2024-09-18 12:25] LABS: Hepatitis C Antibody Reactive (Negative)
--- NOTE | 2024-09-18 16:55 | DVHPN2 ---
Subjective Reports sob and ble swelling. Reviewed: Care Plan, H&P, Labs, Medications Changes from previous H/P or p: Changes General: Per HPI Eyes: No Pain, No Vision change, No Conjunctivae inflammation, No Eyelid inflammation, No Other, No Redness ENT: No Ear pain, No Ear discharge, No Nose pain, No Nose discharge, No Nose congestion, No Mouth pain, No Mouth swelling, No Throat pain, No Throat swelling, No Other Cardiovascular: No Chest Pain, No Palpitations, No Orthopnea, No Paroxysmal Noc. Dyspnea, No Edema, No Lt Headedness, No Other Respiratory: No Cough, No Dry; Shortness of breath; No SOB with excertion, No Wheezing, No Hemoptysis, No Pleuritic Pain, No Sputum, No Other Gastrointestinal: No Nausea, No Vomiting, No Abdominal Pain, No Diarrhea, No Constipation, No Melena, No Hematochezia, No Other Genitourinary: No Dysuria, No Frequency, No Incontinence, No Hematuria, No Retention, No Other Musculoskeletal: No other, No neck pain, No shoulder pain, No arm pain, No back pain, No hand pain, No leg pain, No foot pain Skin: No Rash, No Lesions, No Jaundice, No Bruising, No Other Objective Vitals Vital Signs Date Time Temp Pulse Resp B/P (MAP) Pulse Ox O2 Delivery O2 Flow Rate FiO2 09/18/24 13:00 97.7 63 21 120/63 (82) 96 97.7 09/18/24 08:28 Nasal Cannula* 3 32 Intake/Output Intake and Output 09/18/24 07:00 Intake Total 1650 ml Output Total 1050 ml Balance 600 ml Intake Oral 1400 ml IV Total 250 ml Output Urine Total 1050 ml General Appearance: Alert, Oriented X3, Cooperative, No acute distress HEENT: Atraumatic, PERRLA Lungs: Clear to auscultation, Normal air movement Cardiovascular: Normal S1, Normal S2 Abdomen: Normal bowel sounds, Soft, No tenderness, No hepatospenomegaly Genitourinary: No Apparent Abnormalities Extremities: Normal pulses, Other (Edema BLE) Skin: Dry, Intact Psych/Mental Status: Mental status NL, Mood NL Medications Current Medications Medications Dose Ordered Sig/Wally Route Start Time Stop Time Status Last Admin Dose Admin Ondansetron HCl 4 mg Q4HP PRN IV 09/16/24 13:45 Acetaminophen 650 mg Q6HP PRN PO 09/16/24 13:45 Nitroglycerin 0.4 mg Q5MINP PRN SL 09/16/24 13:45 Morphine Sulfate 2 mg Q30M PRN IV 09/16/24 13:45 Albuterol 2.5 mg Q6HWA [facility] 09/16/24 18:00 09/18/24 12:13 2.5 MG Albuterol 2.5 mg Q4HPRN PRN NEB 09/16/24 13:45 Ipratropium [place] 0.5 mg Q6HWA [facility] 09/16/24 18:00 09/18/24 12:13 0.5 MG Ipratropium [place] 0.5 mg Q4HPRN PRN NEB 09/16/24 13:45 Furosemide 40 mg DAILY IV 09/17/24 10:00 09/18/24 10:44 40 MG Famotidine 20 mg DAILY IV 09/17/24 10:00 09/18/24 10:43 20 MG Budesonide 0.5 mg BID [facility] 09/17/24 22:00 09/18/24 06:20 0.5 MG Metoprolol Succinate 25 mg DAILY PO 09/18/24 10:00 09/18/24 10:43 25 MG Sacubitril/ Valsartan 0.5 tab BID PO 09/17/24 22:00 09/18/24 10:43 0.5 TAB Levofloxacin 750 mg Q48H PO 09/17/24 14:00 09/17/24 14:21 750 MG Atorvastatin Calcium 40 mg HS PO 09/17/24 22:00 09/17/24 21:15 40 MG Enoxaparin Sodium 70 mg Q12HR SC 09/18/24 10:00 09/18/24 10:42 70 MG Nicotine 1 patch DAILY TD 09/18/24 10:00 Aspirin 81 mg DAILY PO 09/18/24 10:00 09/18/24 10:42 81 MG Mupirocin 1 applic BID EACHNOSTRI 09/17/24 22:00 09/22/24 21:59 Vancomycin HCl 0 ml @ 0 mls/hr UD IV 09/17/24 17:15 Vancomycin HCl 250 ml @ 250 mls/hr Q20H IV 09/17/24 20:00 09/17/24 21:16 250 MLS/HR Laboratory Results Laboratory Tests 09/18/24 05:32 Chemistry Test 09/18/24 05:32 Calcium Level 8.1 mg/dL (8.7-10.4) L Urinalysis Test 09/16/24 11:20 Urine Color Light-yellow (Yellow) Urine Clarity Clear (Clear) Urine pH 5.0 (5.0-9.0) Urine Specific [place] 1.014 (1.001-1.035) Urine Protein Negative (Negative) Urine Ketones Negative (Negative) Urine Blood 2+ /uL (Negative) H Urine Nitrite Negative (Negative) Urine Bilirubin Negative (Negative) Urine Urobilinogen Normal mg/dL (Negative) Urine Leukocyte Esterase Negative /uL (Negative) Urine RBC 28 /hpf (0 - 3) Urine WBC <1 /hpf (0 - 3) Urine Squamous Epithelial Cells Few /hpf (<5) Urine Bacteria None seen /hpf (None Seen) Urine Glucose Normal mg/dL (Normal) Microbiology Microbiology Date/Time Source Procedure Growth Status 09/17/24 04:40 Nose MRSA Screen - Final Methicillin Resistant S.aureus Complete Labs and/or images reviewed: Labs reviewed by me, Image(s) reviewed by me Assessment/Plan Assessment/Plan Impression: -Acute systolic HF -Hx of CAD with CABG 2014 -NSTEMI II -Nicotine dependence -Marijuana use -Dyslipidemia -Rule out Sepsis -Acute hypoxic respiratory failure Plan: Events: Patient reports improvement with respiratory status. No plans for ischemia workup at this time. Patient continues to have severe swelling to lower extremities. -Cardiology Consult: Recommendations reviewed. -Echo reviewed -continue Entresto and Toprol, Jardiance -increase IV Lasix to 40 mg b.i.d. -continue Levaquin and vancomycin -Bronchodilators, pulmicort -Repeat labs, cxray in am Total time spent with patient discussing and formulating plan of care: 35 minutes. This medical document was created using an electronic medical record system with [employer] dictation system. Although this document has been carefully reviewed, there may still be some phonetic and typographical errors. These areas are purely typographical due to imperfections of the software programs, and do not reflect any compromise in the patient's medical care. Plan discussed with: Patient, Other (RN) My Orders Orders - MARBELLA BUSCH MANAGING DIRECTOR Procedure Category Date Status Time Blood Culture RAO 09/17/24 In Process 17:05 Mupirocin 2% Oint PHA 09/17/24 In Process Mrsa Nares (Bactroban 22:00 Vancomycin Per PHA 09/17/24 In Process Pharmacy 17:15 Vancomycin 1gm/250ml PHA 09/17/24 In Process Kit 20:00 Vancomycin,Trough LAB 09/20/24 Verified 07:00 Vancomycin Per LUIS CARLOS 09/20/24 In Process Pharmacy Protoc 08:00 Creatinine LAB 09/19/24 Verified 05:00 Creatinine LAB 09/20/24 Verified 07:00 Date of Service: Sep 18, 2024 Billing Provider: MARBELLA BUSCH NP Common Visit Codes: [id number] INP/OBS CARE(HIGH) MARBELLA BUSCH NP Sep 18, 2024 16:55
[2024-09-18] MEDS: NICOTINE 14 MG/24HR TOPICAL PATCH TD SCH (17:01)
--- NOTE | 2024-09-18 18:45 | DVHPN2 ---
Consult Progress Note Subjective Other Systems: Remains in normal sinus rhythm on health and wellness coach Denies any cardiac symptoms at time of assessment Objective vital signs Vital Sign Date Time Temp Pulse Resp B/P (MAP) Pulse Ox O2 Delivery O2 Flow Rate FiO2 09/18/24 17:00 98.0 62 21 128/65 (86) 98 98.0 09/18/24 08:28 Nasal Cannula* 3 32 Total Intake and Output 09/17/24 09/17/24 09/18/24 15:00 23:00 07:00 Intake Total 250 ml 1050 ml 350 ml Output Total 450 ml 600 ml Balance 250 ml 600 ml -250 ml medications Current Medications Medications Dose Ordered Sig/Wally Route Start Time Stop Time Status Last Admin Dose Admin Ondansetron HCl 4 mg Q4HP PRN IV 09/16/24 13:45 Acetaminophen 650 mg Q6HP PRN PO 09/16/24 13:45 Nitroglycerin 0.4 mg Q5MINP PRN SL 09/16/24 13:45 Morphine Sulfate 2 mg Q30M PRN IV 09/16/24 13:45 Albuterol 2.5 mg Q6HWA [facility] 09/16/24 18:00 09/18/24 12:13 2.5 MG Albuterol 2.5 mg Q4HPRN PRN NEB 09/16/24 13:45 Ipratropium [place] 0.5 mg Q6HWA [facility] 09/16/24 18:00 09/18/24 12:13 0.5 MG Ipratropium [place] 0.5 mg Q4HPRN PRN [facility] 09/16/24 13:45 Famotidine 20 mg DAILY IV 09/17/24 10:00 09/18/24 10:43 20 MG Budesonide 0.5 mg BID [facility] 09/17/24 22:00 09/18/24 06:20 0.5 MG Metoprolol Succinate 25 mg DAILY PO 09/18/24 10:00 09/18/24 10:43 25 MG Sacubitril/ Valsartan 0.5 tab BID PO 09/17/24 22:00 09/18/24 10:43 0.5 TAB Levofloxacin 750 mg Q48H PO 09/17/24 14:00 09/17/24 14:21 750 MG Atorvastatin Calcium 40 mg HS PO 09/17/24 22:00 09/17/24 21:15 40 MG Enoxaparin Sodium 70 mg Q12HR SC 09/18/24 10:00 09/18/24 10:42 70 MG Nicotine 1 patch DAILY TD 09/18/24 10:00 09/18/24 17:01 1 PATCH Aspirin 81 mg DAILY PO 09/18/24 10:00 09/18/24 10:42 81 MG Mupirocin 1 applic BID EACHNOSTRI 09/17/24 22:00 09/22/24 21:59 09/18/24 18:32 1 APPLIC Vancomycin HCl 0 ml @ 0 mls/hr UD IV 09/17/24 17:15 Vancomycin HCl 250 ml @ 250 mls/hr Q20H IV 09/17/24 20:00 09/18/24 17:01 250 MLS/HR Furosemide 40 mg BID IV 09/18/24 22:00 Examination: GENERAL:Normal, LUNGS:Normal, CVS:Normal, NEURO:Normal laboratory and microbiology Laboratory Tests 09/18/24 05:32 Test 09/18/24 05:32 Range/Units Serum Glucose 138 H 74-106 mg/dL Problem List/Assessment/Plan Problem List/Assessment/Plan Acute on chronic decompensated HFrEF, 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 Canela): * Echocardiogram revealed EF 20-25% * Dilated LV/RV. Biatrial enlargement. Moderate tricuspid regurgitation * Single-antiplatelet therapy and lipid lowering agent * Rate control, beta-katerina * Therapeutic Lovenox BID. Transition to DOAC when appropriate * [id number] Score 7 points. HAS-BLED Score 3 points * GDMT for CHF as renal function permits * Add mineralcorticoid with stable potassium * Preload and afterload reduction * Strict I&Os. Daily weight. Fluid restrictions Patient seen and evaluated by Dr. Canela. In the setting of medical compliance, the patient could benefit from ischemic work-up and may qualify for an ICD implantation. In the meantime, we will continue conservative management and maximize medical therapy. There is no further inpatient cardiac workup indicated at this time. Patient is to follow-up with a primary steel fixer as an outpatient within 1-2 weeks post-discharge. Thank you for allowing us to participate in this patient's care. Please call if you have any questions or concerns. This medical document was created using an electronic medical record system with voice recognition software and computerized dictation system. Although this document has been carefully reviewed, there might still be some phonetic and typographical errors. Occasional wrong-word or ``sound-alike substitutions may have occurred due to the inherent limitations of voice recognition software. These areas are purely typographical due to imperfections of the software programs and do not reflect any compromise in the patient's medical care. Please read the chart carefully and recognize, using context, where these substitutions have occurred. Plan discussed with: Patient Date of Service: Sep 18, 2024 Billing Provider: MIKE CANELA MD Common Visit Codes: [id number] INP/OBS CARE(HIGH) AMI STRATTON IMPLEMENTATION SERVICES ANALYST Sep 18, 2024 18:45
[2024-09-18] MEDS: FUROSEMIDE 40 MG/4 ML VIAL IV SCH (21:33)
[2024-09-19] VITALS (15 sets, daily range): BP systolic 106–133; BP diastolic 45–67; PULSE 51–74; RESP 16–20; TEMP 97.7–98.2; O2SAT 93–100
--- NOTE | 2024-09-19 05:42 | DVH ---
CHEST RADIOGRAPH Indication: chf Technique: Single frontal view of the chest was obtained COMPARISON: XY CHEST XRAY 1 VIEW on DOS: 09/18/24, XY CHEST XRAY 1 VIEW on DOS: 09/17/24, XY CHEST PORTAB LE on DOS: 09/16/24 FINDINGS: Lines and Tubes: Median sternotomy. Lungs: Multifocal airspace disease. Pleura: No effusion. No pneumothorax. Cardiomediastinal contours: Cardiomegaly Bones: Unremarkable IMPRESSION: No significant interval change.
[2024-09-19 08:19] LABS: Basophils # (auto) 0 10 ^3/uL (0-0.2); Eosinophils # (auto) 0 10 ^3/uL (0-0.8); Lymphocytes # (auto) 0.7 10 ^3/uL (0.4-5.4); Mean Corpuscular Volume 83.3 fL (80.0-100.0); Monocytes # (auto) 1.3 10 ^3/uL (0-1.3); Monocytes % (auto) 9.2 % (0.0-12.0)
[2024-09-19 08:22] LABS: Basophils % (auto) 0.3 % (0.0-2.0); Eosinophils % (auto) 0.1 % (0.0-7.0); Hematocrit 38.8 % (41.0-53.0); Hemoglobin 12.4 g/dL (13.5-17.5); Lymphocytes % (auto) 4.9 % (10.0-50.0); Mean Corpuscular Hemoglobin 26.6 pg (28.0-32.0); Mean Corpuscular Hgb Conc. 31.9 g/dL (32.0-36.0); Neutrophils % (auto) 85.5 % (37.0-80.0); Nucleated Red Blood Cells % 0.2 %; Platelet Count (auto) 276 10^3/uL (140-450); Red Blood Cells 4.66 10^6/uL (4.5-5.90); Red Cell Distribution Width 17.3 % (11.8-14.3); White Blood Cell 14.1 10^3/uL (4.4-10.8)
[2024-09-19 08:34] LABS: Anion Gap 5 (5-15)
[2024-09-19 08:36] LABS: Calcium 8.2 mg/dL (8.7-10.4); Carbon Dioxide 32 mmol/L (20-31); Chloride 101 mmol/L (98-107); Potassium 3.9 mmol/L (3.5-5.1); Sodium 138 mmol/L (136-145)
[2024-09-19 08:39] LABS: Glucose 81 mg/dL (74-106)
[2024-09-19 08:40] LABS: Magnesium 2.1 mg/dL (1.6-2.6)
[2024-09-19 08:46] LABS: Blood Urea Nitrogen 43 mg/dL (9-23)
[2024-09-19] MEDS: EMPAGLIFLOZIN 10 MG TAB PO SCH (09:42)
--- NOTE | 2024-09-19 15:34 | DVHPN2 ---
Subjective Reports sob and ble swelling. Reviewed: Care Plan, H&P, Labs, Medications Changes from previous H/P or p: No Changes General: Per HPI Eyes: No Pain, No Vision change, No Conjunctivae inflammation, No Eyelid inflammation, No Other, No Redness ENT: No Ear pain, No Ear discharge, No Nose pain, No Nose discharge, No Nose congestion, No Mouth pain, No Mouth swelling, No Throat pain, No Throat swelling, No Other Cardiovascular: No Chest Pain, No Palpitations, No Orthopnea, No Paroxysmal Noc. Dyspnea, No Edema, No Lt Headedness, No Other Respiratory: No Cough, No Dry; Shortness of breath; No SOB with excertion, No Wheezing, No Hemoptysis, No Pleuritic Pain, No Sputum, No Other Gastrointestinal: No Nausea, No Vomiting, No Abdominal Pain, No Diarrhea, No Constipation, No Melena, No Hematochezia, No Other Genitourinary: No Dysuria, No Frequency, No Incontinence, No Hematuria, No Retention, No Other Musculoskeletal: No other, No neck pain, No shoulder pain, No arm pain, No back pain, No hand pain, No leg pain, No foot pain Skin: No Rash, No Lesions, No Jaundice, No Bruising, No Other Objective Vitals Vital Signs Date Time Temp Pulse Resp B/P (MAP) Pulse Ox O2 Delivery O2 Flow Rate FiO2 09/19/24 13:00 98.2 55 20 113/61 (78) 96 98.2 09/19/24 12:01 Nasal Cannula* 3 32 Intake/Output Intake and Output 09/19/24 07:00 Intake Total 2275 ml Output Total 4250 ml Balance -1975 ml Intake Oral 2275 ml Output Urine Total 4250 ml General Appearance: Alert, Oriented X3, Cooperative, No acute distress HEENT: Atraumatic, PERRLA Lungs: Clear to auscultation, Normal air movement Cardiovascular: Normal S1, Normal S2 Abdomen: Normal bowel sounds, Soft, No tenderness, No hepatospenomegaly Genitourinary: No Apparent Abnormalities Extremities: Normal pulses, Other (Edema BLE) Skin: Dry, Intact Psych/Mental Status: Mental status NL, Mood NL Medications Current Medications Medications Dose Ordered Sig/Wally Route Start Time Stop Time Status Last Admin Dose Admin Ondansetron HCl 4 mg Q4HP PRN IV 09/16/24 13:45 Acetaminophen 650 mg Q6HP PRN PO 09/16/24 13:45 Nitroglycerin 0.4 mg Q5MINP PRN SL 09/16/24 13:45 Morphine Sulfate 2 mg Q30M PRN IV 09/16/24 13:45 Albuterol 2.5 mg Q6HWA [facility] 09/16/24 18:00 09/19/24 12:01 2.5 MG Albuterol 2.5 mg Q4HPRN PRN NEB 09/16/24 13:45 Ipratropium [place] 0.5 mg Q6HWA [facility] 09/16/24 18:00 09/19/24 12:01 0.5 MG Ipratropium [place] 0.5 mg Q4HPRN PRN NEB 09/16/24 13:45 Famotidine 20 mg DAILY IV 09/17/24 10:00 09/19/24 09:42 20 MG Budesonide 0.5 mg BID NEB 09/17/24 22:00 09/19/24 08:12 0.5 MG Metoprolol Succinate 25 mg DAILY PO 09/18/24 10:00 09/19/24 09:42 25 MG Sacubitril/ Valsartan 0.5 tab BID PO 09/17/24 22:00 09/19/24 09:41 0.5 TAB Levofloxacin 750 mg Q48H PO 09/17/24 14:00 09/19/24 14:38 750 MG Atorvastatin Calcium 40 mg HS PO 09/17/24 22:00 09/18/24 21:30 40 MG Enoxaparin Sodium 70 mg Q12HR SC 09/18/24 10:00 09/19/24 09:44 70 MG Nicotine 1 patch DAILY TD 09/18/24 10:00 09/19/24 09:45 1 PATCH Aspirin 81 mg DAILY PO 09/18/24 10:00 09/19/24 09:41 81 MG Mupirocin 1 applic BID E[facility] 09/17/24 22:00 09/22/24 21:59 09/19/24 09:45 1 APPLIC Vancomycin HCl 0 ml @ 0 mls/hr UD IV 09/17/24 17:15 Vancomycin HCl 250 ml @ 250 mls/hr Q20H IV 09/17/24 20:00 09/19/24 12:34 250 MLS/HR Furosemide 40 mg BID IV 09/18/24 22:00 09/19/24 09:43 40 MG Empaglifozin 10 mg DAILY PO 09/19/24 10:00 09/19/24 09:42 10 MG Laboratory Results Laboratory Tests 09/19/24 06:00 Chemistry Test 09/19/24 06:00 Calcium Level 8.2 mg/dL (8.7-10.4) L Magnesium Level 2.1 mg/dL (1.6-2.6) Urinalysis Test 09/16/24 11:20 Urine Color Light-yellow (Yellow) Urine Clarity Clear (Clear) Urine pH 5.0 (5.0-9.0) Urine Specific [place] 1.014 (1.001-1.035) Urine Protein Negative (Negative) Urine Ketones Negative (Negative) Urine Blood 2+ /uL (Negative) H Urine Nitrite Negative (Negative) Urine Bilirubin Negative (Negative) Urine Urobilinogen Normal mg/dL (Negative) Urine Leukocyte Esterase Negative /uL (Negative) Urine RBC 28 /hpf (0 - 3) Urine WBC <1 /hpf (0 - 3) Urine Squamous Epithelial Cells Few /hpf (<5) Urine Bacteria None seen /hpf (None Seen) Urine Glucose Normal mg/dL (Normal) Microbiology Microbiology Date/Time Source Procedure Growth Status 09/17/24 18:56 Blood Blood Culture - Preliminary NO GROWTH AFTER 24 HOURS OF INCUBATION. Resulted 09/17/24 04:40 Nose MRSA Screen - Final Methicillin Resistant S.aureus Complete Labs and/or images reviewed: Labs reviewed by me, Image(s) reviewed by me Assessment/Plan Assessment/Plan Impression: -Acute systolic HF -Hx of CAD with CABG 2014 -NSTEMI II -Nicotine dependence -Marijuana use -Dyslipidemia -Rule out Sepsis -Acute hypoxic respiratory failure Plan: Events: Patient states he was able to ambulate with improved functional status. Continues to have bilateral lower extremity swelling. White blood cell count improving. -reassess for discharge in a.m. -stop Lovenox, transitioned to Eliquis -Cardiology Consult: Recommendations reviewed. -Echo reviewed -continue Entresto and Toprol, Jardiance -increase IV Lasix to 40 mg b.i.d. -continue Levaquin and vancomycin -Bronchodilators, pulmicort -Repeat labs, cxray in am Total time spent with patient discussing and formulating plan of care: 35 minutes. This medical document was created using an electronic medical record system with [employer] dictation system. Although this document has been carefully reviewed, there may still be some phonetic and typographical errors. These areas are purely typographical due to imperfections of the software programs, and do not reflect any compromise in the patient's medical care. Plan discussed with: Patient, Other (RN) My Orders Orders - MARBELLA BUSCH NP Procedure Category Date Status Time Furosemide Injection PHA 09/18/24 In Process (Lasix Injection) 22:00 May Shower LUIS CARLOS 09/18/24 In Process 16:49 Chest Portable XY 09/19/24 Resulted 04:00 Date of Service: Sep 19, 2024 Billing Provider: MARBELLA BUSCH NP Common Visit Codes: [id number] INP/OBS CARE(HIGH) MARBELLA BUSCH NP Sep 19, 2024 15:34
[2024-09-19] MEDS: APIXABAN 5 MG TAB PO SCH (21:10)
[2024-09-20] VITALS (10 sets, daily range): BP systolic 96–119; BP diastolic 45–58; PULSE 57–77; RESP 17–95; TEMP 97.6–98.6; O2SAT 94–100
--- NOTE | 2024-09-20 10:36 | DVH ---
EXAM: CT HEAD WITHOUT CONTRAST INDICATION: s/p mechanical fall, on blood thinners TECHNIQUE: CT of the head without intravenous contrast. Radiation dose : 1. Head: CT Dose: CTDI volume is 48.53 mGy. Dose-length product is 926.63 mGy*cm The dose indicators for CT are the volume computed tomography (CT) dose index (CTDIvol) and the dose length product (DLP), and are measured in units of mGy and mGy-cm, respectively. These indicators are not patient dose, but values generated from the CT scanner acquisition factors. The report includes radiation exposure data for exposures received during this examination. COMPARISON: None FINDINGS: There is no evidence of acute intracranial hemorrhage, extra-axial collection, mass effect, midline s hift, herniation or hydrocephalus. The ventricles, sulci and cisterns are age appropriate. The buitrago-white differentiation is intact. Patchy periventricular and subcortical white matter hypoattenuation is nonspecific but may be related to small vessel ischemic disease. The visualized paranasal sinuses and mastoid air cells are clear. The surrounding soft tissues and osseous structures are unremarkable. IMPRESSION: 1. Moderate diffuse cortical atrophy. 2. No subdural hematoma. Moderate ventriculomegaly commensurate with sulcal atrophic changes. 3. Moderate chronic left maxillary sinusitis. Moderate bilateral ethmoid sinusitis. 4. Motion artifact 5. No calvarial fracture Radiation optimization: All CT scans at this facility use at least one of these dose optimization asya hniques: Automated exposure control mA and/or kV adjustment per patient size (includes targeted exams where dose is matched to clinical indication) or iterative reconstruction.
--- NOTE | 2024-09-20 11:00 | DVHPN2 ---
Subjective shortness of breath and BLE edema Reviewed: Care Plan, H&P, Labs, Medications, Radiology Changes from previous H/P or p: No Changes General: Per HPI Neurological: Weakness Eyes: No Pain, No Vision change, No Conjunctivae inflammation, No Eyelid inflammation, No Other, No Redness ENT: No Ear pain, No Ear discharge, No Nose pain, No Nose discharge, No Nose congestion, No Mouth pain, No Mouth swelling, No Throat pain, No Throat swelling, No Other Cardiovascular: No Chest Pain, No Palpitations, No Orthopnea, No Paroxysmal Noc. Dyspnea, No Edema, No Lt Headedness, No Other Respiratory: No Cough, No Dry; Shortness of breath; No SOB with excertion, No Wheezing, No Hemoptysis, No Pleuritic Pain, No Sputum, No Other Gastrointestinal: No Nausea, No Vomiting, No Abdominal Pain, No Diarrhea, No Constipation, No Melena, No Hematochezia, No Other Genitourinary: No Dysuria, No Frequency, No Incontinence, No Hematuria, No Retention, No Other Musculoskeletal: No other, No neck pain, No shoulder pain, No arm pain, No back pain, No hand pain, No leg pain, No foot pain Skin: No Rash, No Lesions, No Jaundice, No Bruising, No Other Objective Vitals Vital Signs Date Time Temp Pulse Resp B/P (MAP) Pulse Ox O2 Delivery O2 Flow Rate FiO2 09/20/24 09:39 57 96/45 09/20/24 09:30 98.1 18 97 98.1 09/19/24 20:19 Nasal Cannula 3.0 09/19/24 20:19 32 Intake/Output Intake and Output 09/20/24 07:00 Intake Total 1400 ml Output Total 2200 ml Balance -800 ml Intake Oral 1150 ml IV Total 250 ml Output Urine Total 2200 ml # Bowel Movements 1 Exam shortness of breath , BLE edema General Appearance: Alert, Oriented X3, Cooperative, No acute distress HEENT: Atraumatic, PERRLA Lungs: Clear to auscultation, Normal air movement Cardiovascular: Normal S1, Normal S2 Abdomen: Normal bowel sounds, Soft, No tenderness, No hepatospenomegaly Genitourinary: No Apparent Abnormalities, Other (blood in urine possible from mechanial fall ) Extremities: Normal pulses, Other (Edema BLE) Neuro: Other (drowsey ) Skin: Dry, Intact, Other (cut on lip ) Psych/Mental Status: Mental status NL, Mood NL Medications Current Medications Medications Dose Ordered Sig/Wally Route Start Time Stop Time Status Last Admin Dose Admin Ondansetron HCl 4 mg Q4HP PRN IV 09/16/24 13:45 Acetaminophen 650 mg Q6HP PRN PO 09/16/24 13:45 Nitroglycerin 0.4 mg Q5MINP PRN SL 09/16/24 13:45 Morphine Sulfate 2 mg Q30M PRN IV 09/16/24 13:45 Albuterol 2.5 mg Q6HWA [facility] 09/16/24 18:00 09/19/24 20:19 2.5 MG Albuterol 2.5 mg Q4HPRN PRN [facility] 09/16/24 13:45 Ipratropium [place] 0.5 mg Q6HWA [facility] 09/16/24 18:00 09/19/24 20:19 0.5 MG Ipratropium [place] 0.5 mg Q4HPRN PRN [facility] 09/16/24 13:45 Famotidine 20 mg DAILY IV 09/17/24 10:00 09/20/24 09:31 20 MG Budesonide 0.5 mg BID NEB 09/17/24 22:00 09/19/24 20:19 0.5 MG Metoprolol Succinate 25 mg DAILY PO 09/18/24 10:00 09/19/24 09:42 25 MG Sacubitril/ Valsartan 0.5 tab BID PO 09/17/24 22:00 09/20/24 09:27 0.5 TAB Atorvastatin Calcium 40 mg HS PO 09/17/24 22:00 09/19/24 21:10 40 MG Nicotine 1 patch DAILY TD 09/18/24 10:00 09/20/24 09:27 1 PATCH Aspirin 81 mg DAILY PO 09/18/24 10:00 09/20/24 09:35 81 MG Mupirocin 1 applic BID EACHNOSTRI 09/17/24 22:00 09/22/24 21:59 09/20/24 09:32 1 APPLIC Vancomycin HCl 0 ml @ 0 mls/hr UD IV 09/17/24 17:15 Vancomycin HCl 250 ml @ 250 mls/hr Q20H IV 09/17/24 20:00 09/20/24 08:22 250 MLS/HR Furosemide 40 mg BID IV 09/18/24 22:00 09/19/24 21:10 40 MG Empaglifozin 10 mg DAILY PO 09/19/24 10:00 09/20/24 09:28 10 MG Apixaban 5 mg BID PO 09/19/24 22:00 09/20/24 09:28 5 MG Laboratory Results Laboratory Tests 09/19/24 06:00 09/20/24 06:55 Urinalysis Test 09/16/24 11:20 Urine Color Light-yellow (Yellow) Urine Clarity Clear (Clear) Urine pH 5.0 (5.0-9.0) Urine Specific [place] 1.014 (1.001-1.035) Urine Protein Negative (Negative) Urine Ketones Negative (Negative) Urine Blood 2+ /uL (Negative) H Urine Nitrite Negative (Negative) Urine Bilirubin Negative (Negative) Urine Urobilinogen Normal mg/dL (Negative) Urine Leukocyte Esterase Negative /uL (Negative) Urine RBC 28 /hpf (0 - 3) Urine WBC <1 /hpf (0 - 3) Urine Squamous Epithelial Cells Few /hpf (<5) Urine Bacteria None seen /hpf (None Seen) Urine Glucose Normal mg/dL (Normal) Microbiology Microbiology Date/Time Source Procedure Growth Status 09/17/24 18:56 Blood Blood Culture - Preliminary NO GROWTH AFTER 48 HOURS OF INCUBATION. Resulted 09/17/24 04:40 Nose MRSA Screen - Final Methicillin Resistant S.aureus Complete Labs and/or images reviewed: Labs reviewed by me, Image(s) reviewed by me Assessment/Plan Assessment/Plan 79-year-old male with past medical history of hypertension, COPD, CHF, MO, CVA with right-sided weakness, seizures, and CAD with status post CABG x2 who presents to the ED as a transfer from [facility] for shortness of breaths and elevated troponins. . Patient denies any chest pain, nausea, vomiting, diarrhea, and abdominal pain. events: on 09/19/24 patient had a unwitnessed mechanical fall getting out of bed. no obvious signs of any injury no limb deformities,bruising ,lacerations or pain . only small cut on lip and blood in urine seen from the Mims catheter. patient on anticoagulation stat head ct ordered due to the even. sitter bedside Assessment/Plan Impression: -Acute systolic HF -Hx of CAD with CABG 2015 -NSTEMI II -bilateral lower extremity edema +3 pitting edema -Nicotine dependence -Marijuana use -Dyslipidemia -Rule out Sepsis -Acute hypoxic respiratory failure -mechanical fall on eliquis Plan: -mechanical fall last night -on eliquis -stat head ct ordered (pending ) - maikol cardia(hr 56) and mild hypotension ( SBP 96/54) nurse held morning medication -Cardiology Consult: Recommendations reviewed. -Echo reviewed -continue Entresto and Toprol, Jardiance -continue diureses IV Lasix to 40 mg b.i.d. -continue Levaquin and vancomycin -Bronchodilators, pulmicort -Repeat labs, cxray in am - will have patient under observation for 24 hours due to mechanical fall and on blood thinners , possible pending discharge tomorrow depending on ct results. Plan discussed with: Other (nurse) Date of Service: Sep 20, 2024 Billing Provider: MARBELLA BUSCH NP Common Visit Codes: [id number] INP/OBS CARE(MOD) ROSANA ORTA STUDENT ENERGY ADMINISTRATOR Sep 20, 2024 11:00
[2024-09-21] VITALS (16 sets, daily range): BP systolic 102–135; BP diastolic 51–63; PULSE 63–109; RESP 16–22; TEMP 97.4–98.2; O2SAT 93–100
[2024-09-21] MEDS: VANCOMYCIN 1GM/250ML KIT 250 ML IV SCH (00:04)
[2024-09-21 11:32] LABS: Hematocrit 38.2 % (41.0-53.0); Hemoglobin 12.3 g/dL (13.5-17.5); Mean Corpuscular Hemoglobin 27.2 pg (28.0-32.0); Mean Corpuscular Hgb Conc. 32.2 g/dL (32.0-36.0); Mean Corpuscular Volume 84.3 fL (80.0-100.0); Platelet Count (auto) 269 10^3/uL (140-450); Red Blood Cells 4.53 10^6/uL (4.5-5.90); Red Cell Distribution Width 17.8 % (11.8-14.3); White Blood Cell 8.2 10^3/uL (4.4-10.8)
[2024-09-21 11:46] LABS: Alanine Aminotransferase 32 U/L (7-40); Anion Gap 4 (5-15); BUN/Creatinine Ratio 28.1 (10.0-20.0); Band Neutrophils % (manual) 0; Basophils % (manual) 0 (0.0-2.0); Blast Cells 0; Chloride 103 mmol/L (98-107); Metamyelocytes % 0; Potassium 3.9 mmol/L (3.5-5.1); Promyelocytes % 0; Sodium 140 mmol/L (136-145)
[2024-09-21 11:47] LABS: Albumin 2.5 g/dL (3.2-4.8); Alkaline Phosphatase 149 U/L (46-116); Aspartate Aminotransferase 52 U/L (13-40); Bilirubin, Total 0.9 mg/dL (0.2-1.0); Blood Urea Nitrogen 25 mg/dL (9-23); Carbon Dioxide 33 mmol/L (20-31); Glucose 143 mg/dL (74-106); Total Protein 4.8 g/dL (5.7-8.2)
[2024-09-21 12:19] LABS: Eosinophils % (manual) 3 (0-7); Lymphocytes % (manual) 9 (10.0-50.0); Monocytes % (manual) 11 (0-12); Myelocytes % 1; Reactive Lymphocytes 2
[2024-09-21 12:20] LABS: Anisocytosis Slight; Platelet Estimate Adequate; Tear Drop Cells FEW
--- NOTE | 2024-09-21 16:37 | DVHPN2 ---
Subjective Reports sob and ble swelling. Reviewed: Care Plan, H&P, Labs, Medications, Radiology Changes from previous H/P or p: No Changes General: Per HPI Neurological: Weakness Eyes: No Pain, No Vision change, No Conjunctivae inflammation, No Eyelid inflammation, No Other, No Redness ENT: No Ear pain, No Ear discharge, No Nose pain, No Nose discharge, No Nose congestion, No Mouth pain, No Mouth swelling, No Throat pain, No Throat swelling, No Other Cardiovascular: No Chest Pain, No Palpitations, No Orthopnea, No Paroxysmal Noc. Dyspnea, No Edema, No Lt Headedness, No Other Respiratory: No Cough, No Dry; Shortness of breath; No SOB with excertion, No Wheezing, No Hemoptysis, No Pleuritic Pain, No Sputum, No Other Gastrointestinal: No Nausea, No Vomiting, No Abdominal Pain, No Diarrhea, No Constipation, No Melena, No Hematochezia, No Other Genitourinary: No Dysuria, No Frequency, No Incontinence, No Hematuria, No Retention, No Other Musculoskeletal: No other, No neck pain, No shoulder pain, No arm pain, No back pain, No hand pain, No leg pain, No foot pain Skin: No Rash, No Lesions, No Jaundice, No Bruising, No Other Objective Vitals Vital Signs Date Time Temp Pulse Resp B/P (MAP) Pulse Ox O2 Delivery O2 Flow Rate FiO2 09/21/24 11:31 66 16 99 09/21/24 11:25 Nasal Cannula* 4 36 09/21/24 10:18 106/52 09/21/24 05:00 98.2 98.2 Intake/Output Intake and Output 09/21/24 07:00 Intake Total 1950 ml Output Total 3375 ml Balance -1425 ml Intake Oral 1450 ml IV Total 500 ml Output Urine Total 3375 ml General Appearance: Alert, Oriented X3, Cooperative, No acute distress HEENT: Atraumatic, PERRLA Lungs: Clear to auscultation, Normal air movement Cardiovascular: Normal S1, Normal S2 Abdomen: Normal bowel sounds, Soft, No tenderness, No hepatospenomegaly Genitourinary: No Apparent Abnormalities, Other (blood in urine possible from mechanial fall ) Extremities: Normal pulses, Other (Edema BLE) Neuro: Other (drowsey ) Skin: Dry, Intact, Other (cut on lip ) Psych/Mental Status: Mental status NL, Mood NL Medications Current Medications Medications Dose Ordered Sig/Wally Route Start Time Stop Time Status Last Admin Dose Admin Ondansetron HCl 4 mg Q4HP PRN IV 09/16/24 13:45 Acetaminophen 650 mg Q6HP PRN PO 09/16/24 13:45 Nitroglycerin 0.4 mg Q5MINP PRN SL 09/16/24 13:45 Morphine Sulfate 2 mg Q30M PRN IV 09/16/24 13:45 Albuterol 2.5 mg Q6HWA NEB 09/16/24 18:00 09/21/24 11:25 2.5 MG Albuterol 2.5 mg Q4HPRN PRN NEB 09/16/24 13:45 Ipratropium [place] 0.5 mg Q6HWA NEB 09/16/24 18:00 09/21/24 11:25 0.5 MG Ipratropium [place] 0.5 mg Q4HPRN PRN NEB 09/16/24 13:45 Famotidine 20 mg DAILY IV 09/17/24 10:00 09/21/24 10:18 20 MG Budesonide 0.5 mg BID NEB 09/17/24 22:00 09/21/24 07:44 0.5 MG Metoprolol Succinate 25 mg DAILY PO 09/18/24 10:00 09/19/24 09:42 25 MG Sacubitril/ Valsartan 0.5 tab BID PO 09/17/24 22:00 09/21/24 10:20 0.5 TAB Atorvastatin Calcium 40 mg HS PO 09/17/24 22:00 09/19/24 21:10 40 MG Nicotine 1 patch DAILY TD 09/18/24 10:00 09/21/24 10:20 1 PATCH Aspirin 81 mg DAILY PO 09/18/24 10:00 09/21/24 10:19 81 MG Mupirocin 1 applic BID EACHNOSTRI 09/17/24 22:00 09/22/24 21:59 09/21/24 10:21 1 APPLIC Vancomycin HCl 0 ml @ 0 mls/hr UD IV 09/17/24 17:15 Furosemide 40 mg BID IV 09/18/24 22:00 09/21/24 10:18 40 MG Empaglifozin 10 mg DAILY PO 09/19/24 10:00 09/21/24 10:19 10 MG Apixaban 5 mg BID PO 09/19/24 22:00 09/21/24 10:19 5 MG Vancomycin HCl 250 ml @ 250 mls/hr Q16H IV 09/21/24 00:00 09/21/24 16:08 250 MLS/HR Laboratory Results Laboratory Tests 09/21/24 10:25 Chemistry Test 09/21/24 10:25 Albumin 2.5 g/dL (3.2-4.8) L Calcium Level 8.0 mg/dL (8.7-10.4) L Total Protein 4.8 g/dL (5.7-8.2) L LFT Test 09/21/24 10:25 Alanine Aminotransferase (ALT) 32 U/L (7-40) Alkaline Phosphatase 149 U/L (46-116) H Aspartate Amino Transferase (AST) 52 U/L (13-40) H Total Bilirubin 0.9 mg/dL (0.2-1.0) Urinalysis Test 09/16/24 11:20 Urine Color Light-yellow (Yellow) Urine Clarity Clear (Clear) Urine pH 5.0 (5.0-9.0) Urine Specific [place] 1.014 (1.001-1.035) Urine Protein Negative (Negative) Urine Ketones Negative (Negative) Urine Blood 2+ /uL (Negative) H Urine Nitrite Negative (Negative) Urine Bilirubin Negative (Negative) Urine Urobilinogen Normal mg/dL (Negative) Urine Leukocyte Esterase Negative /uL (Negative) Urine RBC 28 /hpf (0 - 3) Urine WBC <1 /hpf (0 - 3) Urine Squamous Epithelial Cells Few /hpf (<5) Urine Bacteria None seen /hpf (None Seen) Urine Glucose Normal mg/dL (Normal) Microbiology Microbiology Date/Time Source Procedure Growth Status 09/17/24 18:56 Blood Blood Culture - Preliminary NO GROWTH AFTER 72 HOURS OF INCUBATION. Resulted 09/17/24 04:40 Nose MRSA Screen - Final Methicillin Resistant S.aureus Complete Labs and/or images reviewed: Labs reviewed by me, Image(s) reviewed by me Assessment/Plan Assessment/Plan Impression: -Acute systolic HF -Hx of CAD with CABG 2015 -NSTEMI II -Nicotine dependence -Marijuana use -Dyslipidemia -Rule out Sepsis -Acute hypoxic respiratory failure Plan: Events: Leukocytosis resolved. Social service notes reviewed, with possible discharge tomorrow with home health services. -reassess for discharge in a.m. -stop Lovenox, transitioned to Eliquis -Cardiology Consult: Recommendations reviewed. -Echo reviewed -continue Entresto and Toprol, Jardiance -increase IV Lasix to 40 mg b.i.d. -continue Levaquin and vancomycin -Bronchodilators, pulmicort Total time spent with patient discussing and formulating plan of care: 35 minutes. This medical document was created using an electronic medical record system with [employer] dictation system. Although this document has been carefully reviewed, there may still be some phonetic and typographical errors. These areas are purely typographical due to imperfections of the software programs, and do not reflect any compromise in the patient's medical care. Plan discussed with: Patient, Other (RN) My Orders Orders - MARBELLA BUSCH NP Procedure Category Date Status Time * Reading Teacher CONS 09/21/24 Transmitted Consult Date of Service: Sep 21, 2024 Billing Provider: MARBELLA BUSCH NP Common Visit Codes: [id number] INP/OBS CARE(HIGH) MARBELLA BUSCH NP Sep 21, 2024 16:37
[2024-09-22] VITALS (15 sets, daily range): BP systolic 104–127; BP diastolic 51–61; PULSE 54–78; RESP 16–20; TEMP 97.7–98.8; O2SAT 93–100
[2024-09-22 07:02] LABS: Hematocrit 39.9 % (41.0-53.0); Hemoglobin 12.8 g/dL (13.5-17.5); Mean Corpuscular Hemoglobin 26.6 pg (28.0-32.0); Mean Corpuscular Hgb Conc. 32.2 g/dL (32.0-36.0); Mean Corpuscular Volume 82.6 fL (80.0-100.0); Platelet Count (auto) 252 10^3/uL (140-450); Red Blood Cells 4.83 10^6/uL (4.5-5.90); White Blood Cell 9.2 10^3/uL (4.4-10.8)
[2024-09-22 07:22] LABS: Anion Gap 2 (5-15); BUN/Creatinine Ratio 22.8 (10.0-20.0); Chloride 99 mmol/L (98-107); Glucose 90 mg/dL (74-106); Potassium 4.6 mmol/L (3.5-5.1); Sodium 138 mmol/L (136-145)
[2024-09-22 07:28] LABS: Alanine Aminotransferase 41 U/L (7-40); Albumin 2.8 g/dL (3.2-4.8); Alkaline Phosphatase 162 U/L (46-116); Aspartate Aminotransferase 65 U/L (13-40); Bilirubin, Total 1.3 mg/dL (0.2-1.0); Blood Urea Nitrogen 26 mg/dL (9-23); Calcium 8.3 mg/dL (8.7-10.4); Carbon Dioxide 37 mmol/L (20-31); Total Protein 5.3 g/dL (5.7-8.2)
[2024-09-22 07:31] LABS: Basophils % (manual) 0 (0.0-2.0); Blast Cells 0; Metamyelocytes % 0; Myelocytes % 0; Promyelocytes % 0; Reactive Lymphocytes 0
[2024-09-22 08:52] LABS: Band Neutrophils % (manual) 3; Eosinophils % (manual) 2 (0-7); Lymphocytes % (manual) 8 (10.0-50.0); Monocytes % (manual) 11 (0-12); Platelet Estimate Adequate
[2024-09-22 08:53] LABS: Tear Drop Cells FEW
[2024-09-22] MEDS ORDERED: FURO1TAB31 PO (13:10)
[2024-09-22] MEDS ORDERED: METO-6 PO (13:10)
[2024-09-22] MEDS ORDERED: APIX5TAB PO (13:10)
[2024-09-22] MEDS ORDERED: EMPA1TAB PO (13:10)
--- NOTE | 2024-09-22 14:56 | DVHDS2 ---
Discharge Summary Date of Admission Sep 16, 2024 at 13:35 Date of Discharge: Sep 22, 2024 Admitting Diagnosis Acute on chronic respiratory failure Labs/Diagnostic Data: Laboratory Results Test 09/22/24 06:18 09/21/24 10:25 09/20/24 06:55 09/19/24 06:00 White Blood Count 9.2 10^3/uL (4.4-10.8) Red Blood Count 4.83 10^6/uL (4.5-5.90) Hemoglobin 12.8 g/dL (13.5-17.5) Hematocrit 39.9 % (41.0-53.0) Mean Corpuscular Volume 82.6 fL (80.0-100.0) Mean Corpuscular Hemoglobin 26.6 pg (28.0-32.0) Mean Corpuscular Hemoglobin Concent 32.2 g/dL (32.0-36.0) Red Cell Distribution Width 18.0 % (11.8-14.3) Platelet Count 252 10^3/uL (140-450) Mean Platelet Volume 8.2 fL (6.9-10.8) Neutrophils (%) (Auto) % (37.0-80.0) Lymphocytes (%) (Auto) % (10.0-50.0) Monocytes (%) (Auto) % (0.0-12.0) Basophils (%) (Auto) % (0.0-2.0) Neutrophils # (Auto) 10 ^3/uL (1.6-8.6) Lymphocytes # (Auto) 10 ^3/uL (0.4-5.4) Monocytes # (Auto) 10 ^3/uL (0-1.3) Differential Total Cells Counted 100.0 (100) Neutrophils % (Manual) 76 (37.0-80.0) Band Neutrophils % (Manual) 3 Lymphocytes % (Manual) 8 (10.0-50.0) Monocytes % (Manual) 11 (0-12) Eosinophils % (Manual) 2 (0-7) Basophils % (Manual) 0 (0.0-2.0) Metamyelocytes % (manual) 0 Myelocytes % (Manual) 0 Promyelocytes % (Manual) 0 Blast Cells % (Manual) 0 Reactive Lymphocytes 0 Platelet Estimate Adequate Tear Drop Cells Few Sodium Level 138 mmol/L (136-145) Potassium Level 4.6 mmol/L (3.5-5.1) Chloride Level 99 mmol/L (98-107) Carbon Dioxide Level 37 mmol/L (20-31) Anion Gap 2 (5-15) Blood Urea Nitrogen 26 mg/dL (9-23) Creatinine 1.14 mg/dL (0.700-1.30) Glomerular Filtration Rate Calc 66 mL/min (>90) BUN/Creatinine Ratio 22.8 (10.0-20.0) Serum Glucose 90 mg/dL (74-106) Calcium Level 8.3 mg/dL (8.7-10.4) Total Bilirubin 1.3 mg/dL (0.2-1.0) Aspartate Amino Transferase (AST) 65 U/L (13-40) Alanine Aminotransferase (ALT) 41 U/L (7-40) Alkaline Phosphatase 162 U/L (46-116) Total Protein 5.3 g/dL (5.7-8.2) Albumin 2.8 g/dL (3.2-4.8) Anisocytosis (manual) Slight Vancomycin Level Trough 10.9 ug/mL (5-10) Eosinophils (%) (Auto) 0.1 % (0.0-7.0) Eosinophils # (Auto) 0 10 ^3/uL (0-0.8) Basophils # (Auto) 0 10 ^3/uL (0-0.2) Nucleated Red Blood Cells 0.2 % Magnesium Level 2.1 mg/dL (1.6-2.6) Test 09/17/24 14:30 09/17/24 06:17 09/16/24 16:07 09/16/24 14:32 Urine Opiates Screen Neg (NEGATIVE) Urine Fentanyl Screen Neg (NEGATIVE) Urine Barbiturates Screen Neg (NEGATIVE) Urine Phencyclidine Screen Neg (NEGATIVE) Urine Amphetamines Screen Neg (NEGATIVE) Urine Benzodiazepines Screen Neg (NEGATIVE) Urine Cocaine Screen Neg (NEGATIVE) Urine Cannabinoids Screen Pos (NEGATIVE) Hemoglobin A1c 6.4 % A1C (<5.7) Triglycerides Level 76 mg/dL (< 150) Cholesterol Level 115 mg/dL (< 200) LDL Cholesterol 91 mg/dL (< 100) HDL Cholesterol 20 mg/dL (40-59) Thyroid Stimulating Hormone (TSH) 1.07 uIU/mL (0.55-4.78) Hepatitis B Surface Antigen Negative (Negative) Hepatitis C Antibody Reactive (Negative) Troponin I High Sensitivity 85 ng/L (</=54) Blood Gas Specimen Type Arterial Blood Gas Sample Site Right radial Blood Gas Patient Temperature 37.0 Arterial Blood Date Drawn Arterial Blood pH 7.438 (7.350-7.450) Arterial Blood Partial Pressure CO2 38.0 mmHg (35.0-48.0) Arterial Blood Partial Pressure O2 66.4 mmHg (83.0-108.0) Arterial Blood HCO3 25.1 mmol/L (21.0-28.0) Arterial Blood Oxygen Saturation 92.6 % (94.0-98.0) Arterial Blood Base Excess 1.1 mmol/L (-2.0-3.0) Arterial Blood Oxyhemoglobin 90.9 % (94.0-98.0) Arterial Blood Carboxyhemoglobin 1.4 % (0.5-1.5) Arterial Blood Methemoglobin 0.4 % (0.0-1.5) Barry Test Modified Blood Gas Total Hemoglobin 13.50 g/dL (13.5-17.5) Blood Gas Modality Mask - bipap FiO2 % 30.0 Blood Gas Pressure Support 5 Blood Gas EPAP 7 Blood Gas IPAP 12 Test 09/16/24 13:15 09/16/24 11:20 09/16/24 10:07 B-Type Natriuretic Peptide 4786.70 pg/mL (0-100) Urine Color Light-yellow (Yellow) Urine Clarity Clear (Clear) Urine pH 5.0 (5.0-9.0) Urine Specific [place] 1.014 (1.001-1.035) Urine Protein Negative (Negative) Urine Ketones Negative (Negative) Urine Blood 2+ /uL (Negative) Urine Nitrite Negative (Negative) Urine Bilirubin Negative (Negative) Urine Urobilinogen Normal mg/dL (Negative) Urine Leukocyte Esterase Negative /uL (Negative) Urine RBC 28 /hpf (0 - 3) Urine WBC <1 /hpf (0 - 3) Urine Squamous Epithelial Cells Few /hpf (<5) Urine Bacteria None seen /hpf (None Seen) Urine Glucose Normal mg/dL (Normal) Blood Gas Set Respiration Rate 12.0 Blood Gas Spontaneous Rate 28 Other Laboratory Tests 09/22/24 06:18 Brief Hx & Hospital Course: History of Present Illness Sofya Flores is a 79-year-old male with past medical history of hypertension, COPD, CHF, [place], CVA with right-sided weakness, seizures, and CAD with status post CABG x2 who presents to the ED as a transfer from [facility] for shortness of breaths and elevated troponins. Patient was hospitalized yesterday at [facility] for SOB. Upon examination patient has delayed speech but is alert. Patient denies any chest pain, nausea, vomiting, diarrhea, and abdominal pain. Course of hospitalization: Patient was found to have severe decompensated heart failure. Cardiology consultation was placed. Goal-directed medical therapy was started. Patient was given aggressive IV diuresis with improvement with the patient's respiratory status will as bilateral lower extremities. Patient was noted to have leukocytosis for which patient was placed on both vancomycin and Lovenox, given his positive MRSA of the nares. Patient's leukocytosis improved. Cultures have been negative. Patient will be discharged home with follow up with Cardiology in 1-2 weeks. He will be continued on beta-katerina, PREET inhibitor, Jardiance, Eliquis for AFib, as well as Plavix for history of coronary artery disease. Given his mechanical fall in the hospital in his overall deconditioned state, he will be monitored by home health services as well as physical therapy. He is agreeable with discharge plan. All questions answered. Physical examination General: Alert and Oriented x3. No acute distress. Well-nourished. Eyes: EOMI. Anicteric. HENT: Moist mucous membranes. Lungs: Clear to auscultation bilaterally. No accessory muscle use. Cardiovascular: Regular rate and rhythm. No murmur. No JVD. Abdomen: Soft, non-tender and non-distended. No palpable masses. Extremities: No edema. Non-tender. Skin: No rashes or lesions. Warm. Neurologic: No focal neurological deficits. CN II-XII grossly intact, but not individually tested. Psychiatric: Cooperative. Appropriate mood and affect. Total time spent with patient discussing and formulating plan of care: 35 minutes. This medical document was created using an electronic medical record system with [employer] system. Although this document has been carefully reviewed, there may still be some phonetic and typographical errors. These areas are purely typographical due to imperfections of the software programs, and do not reflect any compromise in the patient's medical care. Consults/Reason for consult Cardiology: Decompensated heart failure Condition at Discharge: Poor Final Diagnosis/Problems List Acute on Chronic Respiratory Failure Secondary Diagnosis: -Acute systolic HF -Hx of CAD with CABG 2015 -NSTEMI II -Nicotine dependence -Marijuana use -Dyslipidemia -Rule out Sepsis -Acute hypoxic respiratory failure Discharge Disposition: Home with Health Services Discharge Instruct/Medications Diet: Cardiac 2g Na,low cholest Activity: No Restrictions, As Tolerated Follow Up/Referral: Dr. Hardin in 2-3 weeks PCP in 1-2 weeks Medications: refer to medication reconciliation form 36 Discharge Statement: "Patient was advised to return to the ER or call 911 if any headaches, dizziness, shortness of breath, chest pain, abdominal pain, bleeding, fevers, or worsening of medical condition. Patient was counseled about treatment plan, medications, possible side effects, patientverbalized understanding. All questions were answered to the best of my ability. This discharge took greater then 30 minutes in planning, reviewing documentation, counseling the patient, and discussing with other team members." ASSESSMENT ASSESSMENT Assessment Acute on Chronic Respiratory Failure Date of Service: Sep 22, 2024 Billing Provider: MARBELLA BUSCH NP Common Visit Codes: [id number] DISCH DAY >30min MARBELLA BUSCH NP Sep 22, 2024 14:56
[2024-09-23] VITALS (9 sets, daily range): BP systolic 103–121; BP diastolic 46–55; PULSE 62–71; RESP 16–18; TEMP 97.6–98; O2SAT 92–100
--- NOTE | 2024-09-23 15:31 | DVHPN2 ---
Subjective Patient denies any symptoms. Reviewed: Care Plan, H&P, Labs, Medications, Radiology Changes from previous H/P or p: No Changes General: Per HPI Neurological: Weakness Eyes: No Pain, No Vision change, No Conjunctivae inflammation, No Eyelid inflammation, No Other, No Redness ENT: No Ear pain, No Ear discharge, No Nose pain, No Nose discharge, No Nose congestion, No Mouth pain, No Mouth swelling, No Throat pain, No Throat swelling, No Other Cardiovascular: No Chest Pain, No Palpitations, No Orthopnea, No Paroxysmal Noc. Dyspnea, No Edema, No Lt Headedness, No Other Respiratory: No Cough, No Dry; Shortness of breath; No SOB with excertion, No Wheezing, No Hemoptysis, No Pleuritic Pain, No Sputum, No Other Gastrointestinal: No Nausea, No Vomiting, No Abdominal Pain, No Diarrhea, No Constipation, No Melena, No Hematochezia, No Other Genitourinary: No Dysuria, No Frequency, No Incontinence, No Hematuria, No Retention, No Other Musculoskeletal: No other, No neck pain, No shoulder pain, No arm pain, No back pain, No hand pain, No leg pain, No foot pain Skin: No Rash, No Lesions, No Jaundice, No Bruising, No Other Objective Vitals Vital Signs Date Time Temp Pulse Resp B/P (MAP) Pulse Ox O2 Delivery O2 Flow Rate FiO2 09/23/24 13:00 98.0 64 18 120/54 (76) 98 98.0 09/23/24 11:19 Nasal Cannula* 2 28 Intake/Output Intake and Output 09/23/24 07:00 Intake Total 1700 ml Output Total 3800 ml Balance -2100 ml Intake Oral 1450 ml IV Total 250 ml Output Urine Total 3800 ml # Bowel Movements 4 General Appearance: Alert, Oriented X3, Cooperative, No acute distress HEENT: Atraumatic, PERRLA Lungs: Clear to auscultation, Normal air movement Cardiovascular: Normal S1, Normal S2 Abdomen: Normal bowel sounds, Soft, No tenderness, No hepatospenomegaly Genitourinary: No Apparent Abnormalities, Other (blood in urine possible from mechanial fall ) Extremities: Normal pulses, Other (Edema BLE) Neuro: Other (drowsey ) Skin: Dry, Intact, Other (cut on lip ) Psych/Mental Status: Mental status NL, Mood NL Medications Current Medications Medications Dose Ordered Sig/Wally Route Start Time Stop Time Status Last Admin Dose Admin Ondansetron HCl 4 mg Q4HP PRN IV 09/16/24 13:45 Acetaminophen 650 mg Q6HP PRN PO 09/16/24 13:45 Nitroglycerin 0.4 mg Q5MINP PRN SL 09/16/24 13:45 Morphine Sulfate 2 mg Q30M PRN IV 09/16/24 13:45 Albuterol 2.5 mg Q6HWA NEB 09/16/24 18:00 09/23/24 11:19 2.5 MG Albuterol 2.5 mg Q4HPRN PRN NEB 09/16/24 13:45 Ipratropium [place] 0.5 mg Q6HWA NEB 09/16/24 18:00 09/23/24 11:19 0.5 MG Ipratropium [place] 0.5 mg Q4HPRN PRN NEB 09/16/24 13:45 Famotidine 20 mg DAILY IV 09/17/24 10:00 09/23/24 09:26 20 MG Budesonide 0.5 mg BID NEB 09/17/24 22:00 09/23/24 06:44 0.5 MG Metoprolol Succinate 25 mg DAILY PO 09/18/24 10:00 09/22/24 08:31 25 MG Sacubitril/ Valsartan 0.5 tab BID PO 09/17/24 22:00 09/23/24 09:27 0.5 TAB Atorvastatin Calcium 40 mg HS PO 09/17/24 22:00 09/22/24 22:01 40 MG Nicotine 1 patch DAILY TD 09/18/24 10:00 09/23/24 09:32 1 PATCH Aspirin 81 mg DAILY PO 09/18/24 10:00 09/23/24 09:26 81 MG Vancomycin HCl 0 ml @ 0 mls/hr UD IV 09/17/24 17:15 Furosemide 40 mg BID IV 09/18/24 22:00 09/22/24 22:01 40 MG Empaglifozin 10 mg DAILY PO 09/19/24 10:00 09/23/24 09:26 10 MG Apixaban 5 mg BID PO 09/19/24 22:00 09/23/24 09:26 5 MG Vancomycin HCl 250 ml @ 250 mls/hr Q16H IV 09/21/24 00:00 09/22/24 08:27 250 MLS/HR Laboratory Results Laboratory Tests 09/22/24 06:18 Urinalysis Test 09/16/24 11:20 Urine Color Light-yellow (Yellow) Urine Clarity Clear (Clear) Urine pH 5.0 (5.0-9.0) Urine Specific [place] 1.014 (1.001-1.035) Urine Protein Negative (Negative) Urine Ketones Negative (Negative) Urine Blood 2+ /uL (Negative) H Urine Nitrite Negative (Negative) Urine Bilirubin Negative (Negative) Urine Urobilinogen Normal mg/dL (Negative) Urine Leukocyte Esterase Negative /uL (Negative) Urine RBC 28 /hpf (0 - 3) Urine WBC <1 /hpf (0 - 3) Urine Squamous Epithelial Cells Few /hpf (<5) Urine Bacteria None seen /hpf (None Seen) Urine Glucose Normal mg/dL (Normal) Microbiology Microbiology Date/Time Source Procedure Growth Status 09/17/24 18:56 Blood Blood Culture - Final NO GROWTH AFTER 5 DAYS OF INCUBATION. Complete 09/17/24 04:40 Nose MRSA Screen - Final Methicillin Resistant S.aureus Complete Labs and/or images reviewed: Labs reviewed by me, Image(s) reviewed by me Assessment/Plan Assessment/Plan Impression: -Acute systolic HF -Hx of CAD with CABG 2014 -NSTEMI II -Nicotine dependence -Marijuana use -Dyslipidemia -Rule out Sepsis -Acute hypoxic respiratory failure Plan: Events: Patient was discharged yesterday. Mims catheter was DC seen. Night nurse replaced Mims catheter because of urinary retention. Discussed with the patient that he has been accepted with home health services we will be discharged home today after 4 L removed and he has voided. Patient will be provided one dose of Flomax. He was agreeable with discharge plan. -reassess for discharge in a.m. -stop Lovenox, transitioned to Eliquis -Cardiology Consult: Recommendations reviewed. -Echo reviewed -continue Entresto and Toprol, Jardiance -increase IV Lasix to 40 mg b.i.d. -continue Levaquin and vancomycin -Bronchodilators, pulmicort Total time spent with patient discussing and formulating plan of care: 35 minutes. This medical document was created using an electronic medical record system with [employer] system. Although this document has been carefully reviewed, there may still be some phonetic and typographical errors. These areas are purely typographical due to imperfections of the software programs, and do not reflect any compromise in the patient's medical care. Plan discussed with: Patient, Other (RN) My Orders Orders - MARBELLA BUSCH NP Procedure Category Date Status Time Discontinue Mims LUIS CARLOS 09/23/24 In Process Catheter 15:08 Discharge DISCHARGE 09/23/24 Transmitted 15:28 Tamsulosin PHA 09/23/24 Transmitted Hydrochloride (Flomax) 15:30 Date of Service: Sep 23, 2024 Billing Provider: MARBELLA BUSCH NP Common Visit Codes: [id number] INP/OBS CARE(HIGH) MARBELLA BUSCH NP Sep 23, 2024 15:31
[2024-09-23] MEDS: TAMSULOSIN HYDROCHLORIDE 0.4 MG CAP PO ONE (15:48)
[2024-09-25] MEDS ORDERED: APIX5TAB PO (13:40)
[2024-09-25] MEDS ORDERED: FURO1TAB31 PO (13:40)
[2024-09-25] MEDS ORDERED: EMPA1TAB PO (13:40)
== END 2024-09-23 18:58 | disposition home health service (06) | DRG 871 ==
LOC: ER 07:53 → TELE 13:35 → TELE-WESTW 22:30 → TELE-CENTR 09-21 00:50
PROVIDERS: ADMIT Nurse Practitioner Acute Care; ATTEND Nurse Practitioner Acute Care
PROC: 5A09357 Assistance with Respiratory Ventilation, Less than 24 Consecutive Hours, Continuous Positive Airway Pressure (ICD-10-PCS; principal; 2024-09-16)
DX: A41.9 Sepsis, unspecified organism (principal); I21.A1 Myocardial infarction type 2; J96.21 Acute and chronic respiratory failure with hypoxia; I50.21 Acute systolic (congestive) heart failure; I69.351 Hemiplegia and hemiparesis following cerebral infarction affecting right dominant side; J44.1 Chronic obstructive pulmonary disease with (acute) exacerbation; I42.0 Dilated cardiomyopathy; I11.0 Hypertensive heart disease with heart failure; E78.5 Hyperlipidemia, unspecified; I07.1 Rheumatic tricuspid insufficiency; I25.10 Atherosclerotic heart disease of native coronary artery without angina pectoris; D72.829 Elevated white blood cell count, unspecified; I25.5 Ischemic cardiomyopathy; Z88.1 Allergy status to other antibiotic agents; Z79.899 Other long term (current) drug therapy; Z88.0 Allergy status to penicillin; Z95.1 Presence of aortocoronary bypass graft; Z91.199 Patient's noncompliance with other medical treatment and regimen due to unspecified reason; W06.XXXA Fall from bed, initial encounter; Y93.89 Activity, other specified; Y92.238 Other place in hospital as the place of occurrence of the external cause; Y99.8 Other external cause status
CPT/HCPCS: 36415; 36600; 70450; 71045; 76705; 80048; 80053; 80061; 80202; 80307; 81001; 82565; 82805; 83036; 83735; 83880; 84443; 84484; 85007; 85025; 85027; 86803; 87040; 87081; 87340; 93005; 93306; 94002; 94640; 94660; 97110; 97116; 97163; 97530; 99291; G0378; J3490

== ENCOUNTER → 2025-01-19 | Outpatient (CLI) | payer OTHER, MEDICARE ==
[~2025-01-19] MED LIST: APIX5TAB PO; ASPI-325 PO; ATOR40TA52 PO; CLOP75TA70 PO; EMPA1TAB PO; FURO1TAB31 PO; LISI20TA56 PO
[2025-01-19 15:20] VITALS: BP 99/65; PULSE 50; RESP 20; O2SAT 95
[2025-01-19] MEDS: BUMETANIDE INJECTION 10 ML ONE (15:32)
[2025-01-19] MEDS: BUMETANIDE 2.5mg/10ml (0.25 mg/ml) INJ IV ONE (15:38)
[2025-01-19 16:14] VITALS: BP 118/62; PULSE 69; RESP 20; O2SAT 95
--- NOTE | 2025-01-19 16:37 | DVH ---
XY CHEST TWO VIEWS ROUTINE CLINICAL HISTORY: SOB COMPARISON: None TECHNIQUE: Frontal and lateral view of the chest was obtained FINDINGS: Lines and Tubes: Sternal wire sutures in place Lungs: No focal consolidation. Pleura: Small left pleural effusion Cardiomediastinal contours: Unremarkable Bones: No acute osseous abnormality. IMPRESSION: 1. Small left pleural effusion
== END | disposition home or self-care (01) ==
LOC: Rad HDHVI 15:23
PROVIDERS: ATTEND Internal Medicine Cardiovascular Disease
DX: I11.0 Hypertensive heart disease with heart failure (principal); I50.23 Acute on chronic systolic (congestive) heart failure; J90 Pleural effusion, not elsewhere classified; R42 Dizziness and giddiness; J96.10 Chronic respiratory failure, unspecified whether with hypoxia or hypercapnia; I25.10 Atherosclerotic heart disease of native coronary artery without angina pectoris; E78.5 Hyperlipidemia, unspecified; Z79.899 Other long term (current) drug therapy
CPT/HCPCS: 71046; 96374; G0463

== ENCOUNTER 2025-03-20 15:34 | Inpatient (IN) | payer OTHER, MEDICARE ==
[~2025-03-20] VITALS: Ht 162.6 cm; Wt 71.6 kg
--- NOTE | 2025-03-20 15:57 | ED.PDOC ---
HPI Comments HPI: 79 year old male presents to the emergency department via EMS with a chief complaint of chest discomfort onset today (03/20/25). Per EMS, patient is from [facility], was going to the restroom in a wheelchair, began experiencing shortness of breath, chest discomfort, generalized weakness. Patient states his life vest shocked him 3 times today. Upon EMS arrival, HR was 40, DIONNE 106/56, breathing treatment was given. Patient is currently on Eliquis, Lasix, Flomax, antibiotic course for bilateral infiltrates. Patient is a full code. PMHx COPD, BPH, HTN, HLD, CVA, MD, suicidal attempt, CHF with EF 10-15%, hemiplegia, previous CABG procedure as well as cardiac stents. No other symptoms or modifying factors present at this time. Initial Vitals BP: 129/63 HR: 54 RR: 20 O2: 96% Temp: 97.9F Past Medical History: COPD, BPH, HTN, HLD, CVA, MD, suicidal attempt, CHF with EF 10-15%, hemiplegia Past Surgical History: CABG, cardiac stents Social History: Denies ETOH, smoking, and drug use. Medications: Flomax, Eliquis, Lasix Allergies: NKDA HPI: Poor Historian. REVIEW OF SYSTEMS: CONSTITUTIONAL: Denies acute: fever, diaphoresis, chills, HEAD: Denies acute: headache, photophobia Eyes: Denies acute: Double vision, vision loss, eye pain, eye discharge. EARS: Denies acute: tinnitus, hearing loss, ear discharge, ear pain, THROAT: Denies acute: sore throat, swelling, difficulty swallowing , pain with swallowing, change in voice. NECK: Denies acute: neck pain, neck swelling, stiff neck. HEART: Denies acute : chest pain, palpitations, LUNGS: Denies acute: wheezing, cough, hemoptysis ABDOMEN: Denies acute: abdominal pain, Nausea, Vomiting, diarrhea, melena , hematemesis, hematochezia SKIN: Denies acute: rash, redness, lesions, itchiness. EXTREMITIES: Denies acute: calf pain, numbness, tingling, weakness, denies pain in extremity. Denies acute: Low back pain. Neuro: Denies acute: focal neurological deficit, motor or sensory focal neurological deficit, tremors, seizure like activity, confusion, change in mental status, loss of bowel or bladder function, cauda equina like symptoms. : Denies acute: dysuria, hematuria, flank pain, increase in urinary frequency. PSYCH: Denies acute: hallucination, suicidal ideation, homicidal ideation. PHYSICAL EXAM: General: ---no----acute distress, awake and alert. Head: normocephalic, atraumatic. Neck: supple, trachea is midline, no swelling. Throat: Normal phonation. Eyes:, no erythema, no purulent discharge, no proptosis, no icterus. Heart: regular bradycardia, no significant murmur appreciated. Lungs: no apparent respiratory distress, Able to speak in full sentences. No wheezing, no rhonchi, no crackles. No stridors Clear to auscultation bilaterally. Abdomen: non tender to palpation, non distended, soft, no guarding, no rebound, + bowel sounds. Neuro: Awake, Alert, oriented to name, self, situation, follows commands GCS=15. Speech is normal. Skin: no petechia, no purpura, no cyanosis, non-pale, not jaundice. Lower extremities: --2/4 bilateral - Pitting edema no deformity, no focal swelling, no calf TTP. Makes eye contact. Face: no apparent facial droop. Pedal pulses are palpable. ED COURSE: DISCLAIMER: This medical document was created using an electronic medical record system with voice recognition software and computerized dictation system. Although this document has been carefully reviewed, there might still be some phonetic and typographical errors. Occasional wrong-word or "sound-alike" substitutions may have occurred due to the inherent limitations of voice recognition software. These areas are purely typographical due to imperfections of the software progr ams and do not reflect any compromise in the patient's medical care. Please read the chart carefully and recognize, using context, where these substitutions have occurred. Time Seen by MD: 15:40 Reviewed Notes: Medications, Allergies Allergies: Coded Allergies: Erythromycin (Verified Allergy, Unknown, 09/16/24) Penicillins (Verified Allergy, Unknown, 09/16/24) Tetracycline (Verified Allergy, Unknown, 09/16/24) Home Meds Active Scripts Furosemide (Lasix) 40 Mg Tab, 40 MG PO DAILY for 30 Days, #30 TAB Prov:MARBELLA BUSCH FREEZER WORKER 09/25/24 Apixaban Base (ELIQUIS) 5 Mg Tab, 5 MG PO BID for 30 Days, #60 TAB Prov:VERA BUSCHPH FREEZER WORKER 09/25/24 Empagliflozin (Jardiance) 10 Mg Tab, 10 MG PO DAILY for 30 Days, #30 TAB 1 Refill Prov:VERA BUSCHPH FREEZER WORKER 09/25/24 Reported Medications Clopidogrel Bisulfate (CLOPIDOGREL) 75 Mg Tab, 1 TAB PO DAILY 09/16/24 Aspirin (Aspirin Low Dose) 81 Mg Tab, 1 TAB PO DAILY 09/16/24 Atorvastatin Calcium (ATORVASTATIN CALCIUM) 40 Mg Tab, 1 TAB PO HS 09/16/24 Lisinopril (Lisinopril) 20 Mg Tab, 1 TAB PO DAILY 09/16/24 Information Source: Patient, Emergency Med Personnel Mode of Arrival: EMS Severity: Moderate Timing: Hours Duration: Since onset Prehospital treatment: Breathing Tx Location: Chest (L) Radiation: No Radiation Quality: Pressure Onset: At Rest Cardiac Risk Factors: Hyperlipidemia, HTN History of: MD Modifying Factors: Nothing Associated Signs and Symptoms: SOB Past Medical History PAST MEDICAL HISTORY: CHF, COPD, CVA, GERD, High Lipids, HTN, MD, Seizures Past Medical History (Other): BPH, sucidial attempt, Surgical History: Unknown Family History Family History: Unknown Social History Smoker: Non-Smoker Alcohol: Denies ETOH Use Drugs: Denies Drug Use Lives In: Assisted Care Was a procedure done? Was a procedure done?: No X-Ray, Labs, Meds, VS Vital Signs Date Time Temp Pulse Resp B/P (MAP) Pulse Ox O2 Delivery O2 Flow Rate FiO2 03/20/25 19:12 97.6 45 13 110/47 (68) 100 97.6 03/20/25 19:12 45 13 100 Nasal Cannula* 2 03/20/25 18:15 97.9 45 16 102/42 (62) 100 97.9 03/20/25 16:15 97.9 47 16 105/42 (63) 100 97.9 03/20/25 16:15 100 Nasal Cannula* 2 28 03/20/25 15:45 97.9 54 20 129/63 (85) 96 97.9 03/20/25 15:40 47 Lab Test 03/20/25 19:37 03/20/25 17:44 03/20/25 16:30 Range/Units Troponin I High Sensitivity 29 27 26 </=54 ng/L White Blood Count 5.8 4.4-10.8 10^3/uL Red Blood Count 3.59 L 4.5-5.90 10^6/uL Hemoglobin 10.1 L 13.5-17.5 g/dL Hematocrit 31.2 L 41.0-53.0 % Mean Corpuscular Volume 87.0 80.0-100.0 fL Mean Corpuscular Hemoglobin 28.2 28.0-32.0 pg Mean Corpuscular Hemoglobin Concent 32.4 32.0-36.0 g/dL Red Cell Distribution Width 19.3 H 11.8-14.3 % Platelet Count 198 140-450 10^3/uL Mean Platelet Volume 8.5 6.9-10.8 fL Neutrophils (%) (Auto) 71.1 37.0-80.0 % Lymphocytes (%) (Auto) 13.3 10.0-50.0 % Monocytes (%) (Auto) 12.8 H 0.0-12.0 % Eosinophils (%) (Auto) 2.1 0.0-7.0 % Basophils (%) (Auto) 0.7 0.0-2.0 % Neutrophils # (Auto) 4.2 1.6-8.6 10 ^3/uL Lymphocytes # (Auto) 0.8 0.4-5.4 10 ^3/uL Monocytes # (Auto) 0.7 0-1.3 10 ^3/uL Eosinophils # (Auto) 0.1 0-0.8 10 ^3/uL Basophils # (Auto) 0 0-0.2 10 ^3/uL Nucleated Red Blood Cells 0.1 % Sodium Level 141 136-145 mmol/L Potassium Level 4.5 3.5-5.1 mmol/L Chloride Level 108 H 98-107 mmol/L Carbon Dioxide Level 24 20-31 mmol/L Anion Gap 9 5-15 Blood Urea Nitrogen 28 H 9-23 mg/dL Creatinine 1.09 0.700-1.30 mg/dL Glomerular Filtration Rate Calc 69 >90 mL/min BUN/Creatinine Ratio 25.7 H 10.0-20.0 Serum Glucose 114 H 74-106 mg/dL Lactic Acid Level 1.2 0.4-2.0 mmol/L Calcium Level 9.4 8.7-10.4 mg/dL Magnesium Level 1.8 1.6-2.6 mg/dL Total Bilirubin 0.5 0.2-1.0 mg/dL Aspartate Amino Transferase (AST) 43 H 13-40 U/L Alanine Aminotransferase (ALT) 29 7-40 U/L Alkaline Phosphatase 140 H 46-116 U/L Total Protein 5.8 5.7-8.2 g/dL Albumin 3.6 3.2-4.8 g/dL [place] [id number] Ph: [phone] DIAGNOSTIC IMAGING Diagnostic Imaging Report : [id number] Signed PATIENT: MARK GARCIA ACCT: [id number] UNIT: [id number] : 1945 LOC: ER ROOM / BED: / AGE / SEX: 79 / M ADM STATUS: REG ER SERVICE 1605 ORDERING PHYSICIAN: JEREL TAYLOR DO PROCEDURE(s): CXRP - CHEST PORTABLE REASON: weak ORDER NUMBER(s): [id number], ACCESSION NUMBER(s): [id number] CHEST RADIOGRAPH Indication: weak Technique: Single frontal view of the chest was obtained Comparison: XY CHEST PORTABLE on DOS: 09/19/24, XY CHEST XRAY 1 VIEW on DOS: 09/18/24, XY CHEST XRAY 1 VIEW on DOS: 09/17/24 FINDINGS: Lines and Tubes: None Lungs: No focal consolidation. Mild interstitial prominence. Indistinctness of the left hemidiaphragm. No pneumothorax. Cardiomediastinal contours: Pmiv-wn-vhwdxdfm cardiomegaly with dnms-vf-jngsjbri atherosclerotic calcification and uncoiling of the aorta. Bones: No acute osseous abnormality. IMPRESSION: Cardiomegaly with pulmonary vascular congestion and possible trace left sided pleural effusion. Underlying infectious process can not be excluded. ATED BY: ANN-MARIE STONE DO DICTATED DATE/TIME: 03/20/25 1717 SIGNED BY: ANN-MARIE STONE DO SIGNED DATE/TIME: 03/20/25 1717 CC: Time of 1ST Reevaluation: 16:10 Reevaluation 1ST: Unchanged Patient Education/Counseling: Diagnosis, Treatment Family Education/Counseling: No Family Present Departure 1 Departure Time of Disposition: 16:33 Impression: Primary Impression: CHF exacerbation Additional Impressions: Defibrillator discharge Pleural effusion Disposition: ADMITTED INPATIENT Admit to: Tele Condition: Guarded Discharged With: Self Critical Care Note Critical Care Time?: No I personally scribed for JEREL TAYLOR DO ([email or web address]) on 03/20/25 at 15:57. Electronically submitted by Lauren Aguilar ([email or web address]). I personally scribed for JEREL TAYLOR DO ([email or web address]) on 03/20/25 at 16:44. Electronically submitted by Lauren Aguilar ([email or web address]). I personally scribed for JEREL TAYLOR DO ([email or web address]) on 03/20/25 at 18:16. Electronically submitted by Lauren Aguilar ([email or web address]). JEREL TAYLOR DO Mar 20, 2025 15:57
[2025-03-20 16:15] VITALS: O2SAT 100
[2025-03-20 16:46] LABS: Hematocrit 31.2 % (41.0-53.0); Hemoglobin 10.1 g/dL (13.5-17.5); Mean Corpuscular Hemoglobin 28.2 pg (28.0-32.0); Mean Corpuscular Volume 87.0 fL (80.0-100.0); Nucleated Red Blood Cells % 0.1 %
[2025-03-20 17:01] LABS: Alanine Aminotransferase 29 U/L (7-40); Albumin 3.6 g/dL (3.2-4.8); Anion Gap 9 (5-15); BUN/Creatinine Ratio 25.7 (10.0-20.0); Bilirubin, Total 0.5 mg/dL (0.2-1.0); Calcium 9.4 mg/dL (8.7-10.4); Carbon Dioxide 24 mmol/L (20-31); Magnesium 1.8 mg/dL (1.6-2.6); Potassium 4.5 mmol/L (3.5-5.1); Sodium 141 mmol/L (136-145); Total Protein 5.8 g/dL (5.7-8.2)
[2025-03-20 17:02] LABS: Alkaline Phosphatase 140 U/L (46-116); Blood Urea Nitrogen 28 mg/dL (9-23); Chloride 108 mmol/L (98-107); Glucose 114 mg/dL (74-106)
--- NOTE | 2025-03-20 17:20 | DVH ---
CHEST RADIOGRAPH Indication: weak Technique: Single frontal view of the chest was obtained Comparison: XY CHEST PORTABLE on DOS: 09/19/24, XY CHEST XRAY 1 VIEW on DOS: 09/18/24, XY CHEST XRAY 1 V IEW on DOS: 09/17/24 FINDINGS: Lines and Tubes: None Lungs: No focal consolidation. Mild interstitial prominence. Indistinctness of the left hemidiaphragm . No pneumothorax. Cardiomediastinal contours: Wbhw-uk-qetrwbid cardiomegaly with wngq-hd-lttqcdtw atherosclerotic calci fication and uncoiling of the aorta. Bones: No acute osseous abnormality. IMPRESSION: Cardiomegaly with pulmonary vascular congestion and possible trace left sided pleural effusion. Under lying infectious process can not be excluded.
[2025-03-20 19:12] VITALS: PULSE 45; RESP 13; O2SAT 100
[2025-03-20] MEDS: levoFLOXacin 500 MG TAB PO ONE (20:40)
[2025-03-20] MEDS ORDERED: ACETAMINOPHEN 325 MG TAB PO PRN (20:45)
[2025-03-20] MEDS ORDERED: ONDANSETRON HCL 4 MG/2 ML VIAL IV PRN (20:45)
[2025-03-20] MEDS ORDERED: HYDROcodone-ACET 5/325MG TAB PO PRN (20:45)
[2025-03-20] MEDS ORDERED: DOCUSATE SOD 100 MG CAP PO PRN (20:45)
--- NOTE | 2025-03-20 21:15 | ECG ---
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
[2025-03-20] MEDS: SODIUM CHLOR 0.9% PF (SALINE LOCK) 10ML VIAL/SYR IV SCH (22:24)
[2025-03-20] MEDS: ATORVASTATIN 20 MG TAB PO SCH (22:24)
--- NOTE | 2025-03-20 22:29 | DVHHP2 ---
History of Present Illness Reason for Visit: COPD with acute exacerbation History of Present Illness The patient is a 79-year-old male with multiple past medical history including GERD, COPD, CHF, and hypertension who presented to [facility] ED with complaint of chest pain. Patient reports he has been experiencing chest discomfort associated with shortness of breaths and generalized weakness. Patient was seen and evaluated in the ED, laboratory data shows WBC 5.8, hemoglobin 10.1, hematocrit 31.2, platelets 198, sodium 141, potassium 4.5, BUN 28, creatinine 1.09, glucose 114, AST 43, ALT 29, troponin 29, BNP 1937.42, blood pressure 110/47, heart rate 45, temperature 97.6 F, O2 saturation 99% on oxygen. Chest x-ray revealing cardiomegaly with pulmonary vascular congestion and possible trace left sided pleural effusion, underlying infectious process can not be excluded. Please see medication orders section in the computer. On my assessment, patient denied chest pain, no headache, no dizziness, no diaphoresis, currently on oxygen, no nausea, no vomiting, no fever, no chills. Patient was admitted for further evaluation and medical management. Past Medical History Seizures, GERD, COPD, BPH, HTN, HLD, CVA, [place], suicidal attempt, CHF with EF 10- 15%, hemiplegia Past Surgical History CABG, Cardiac stents Family History Reviewed, noncontributory to the management of this case. Past Social History The patient lives at senior care facility, denies smoking, alcohol or illicit drugs abuse. Review of Systems Constitutional: Yes: Weakness; No: Fever, Chills, Sweats, Malaise, Other Eyes: No: Pain, Vision change, Conjunctivae inflammation, Eyelid inflammation, Other, Redness ENT: No: Ear pain, Ear discharge, Nose pain, Nose discharge, Nose congestion, Mouth pain, Mouth swelling, Throat pain, Throat swelling, Other Respiratory: Shortness of breath, Other (SOB at rest); No: Cough, Dry, SOB with excertion, Wheezing, Hemoptysis, Pleuritic Pain, Sputum, Wheezing Cardiovascular: Chest Pain; No: Palpitations, Orthopnea, Paroxysmal Noc. Dyspnea, Edema, Lt Headedness, Other Gastrointestinal: No: Nausea, Vomiting, Abdominal Pain, Diarrhea, Constipation, Melena, Hematochezia, Other Genitourinary: No Dysuria, No Frequency, No Incontinence, No Hematuria, No Retention, No Other Musculoskeletal: No: other, neck pain, shoulder pain, arm pain, back pain, hand pain, leg pain, foot pain Skin: No: Rash, Lesions, Jaundice, Bruising, Other Neurological: Weakness; No: Numbness, Incoordination, Change in speech, Confusion, Seizures, Other Allergies: Coded Allergies: Erythromycin (Verified Allergy, Unknown, 09/16/24) Penicillins (Verified Allergy, Unknown, 09/16/24) Tetracycline (Verified Allergy, Unknown, 09/16/24) Medications Current Medications Medications Dose Ordered Sig/Wally Route Start Time Stop Time Status Last Admin Dose Admin Aspirin 81 mg DAILY PO 03/21/25 10:00 Atorvastatin Calcium 20 mg HS PO 03/20/25 22:00 03/20/25 22:24 20 MG Lisinopril 20 mg DAILY PO 03/21/25 10:00 Sodium Chloride 10 ml Q8HR IV 03/20/25 22:00 03/20/25 22:24 10 ML Acetaminophen/ Hydrocodone Bitart 1 tab Q4HP PRN PO 03/20/25 20:45 Ondansetron HCl 4 mg Q4HP PRN IV 03/20/25 20:45 Docusate Sodium 100 mg BIDPRN PRN PO 03/20/25 20:45 Acetaminophen 650 mg Q6HP PRN PO 03/20/25 20:45 Exam Vital Signs Vital Signs Date Time Temp Pulse Resp B/P (MAP) Pulse Ox O2 Delivery O2 Flow Rate FiO2 03/20/25 19:12 97.6 45 13 110/47 (68) 100 97.6 03/20/25 19:12 Nasal Cannula* 2 28 General Appearance: Alert, Oriented X3, Cooperative, No acute distress HEENT: Atraumatic, PERRLA, EOMI, Mucous membr. moist/pink Respiratory: Clear to auscultation, Normal air movement Cardiovascular: Normal S1, Normal S2, No murmurs, Other (Irregular rate and rhythm) Abdominal: Normal bowel sounds, Soft, No tenderness, No hepatospenomegaly, No masses Extremities: No clubbing, No cyanosis, No edema, Normal pulses, No tenderness/s welling Skin: No rashes, No significant lesion Neuro: Normal speech, Normal tone, Sensation intact, Cranial nerves 3-12 NL, Reflexes 2+, Other (Generalized weakness) Psych/Mental Status: Mental status NL, Mood NL Labs/Xrays Labs Test 03/20/25 19:37 03/20/25 16:30 Range/Units Troponin I High Sensitivity 29 </=54 ng/L White Blood Count 5.8 4.4-10.8 10^3/uL Red Blood Count 3.59 L 4.5-5.90 10^6/uL Hemoglobin 10.1 L 13.5-17.5 g/dL Hematocrit 31.2 L 41.0-53.0 % Mean Corpuscular Volume 87.0 80.0-100.0 fL Mean Corpuscular Hemoglobin 28.2 28.0-32.0 pg Mean Corpuscular Hemoglobin Concent 32.4 32.0-36.0 g/dL Red Cell Distribution Width 19.3 H 11.8-14.3 % Platelet Count 198 140-450 10^3/uL Mean Platelet Volume 8.5 6.9-10.8 fL Neutrophils (%) (Auto) 71.1 37.0-80.0 % Lymphocytes (%) (Auto) 13.3 10.0-50.0 % Monocytes (%) (Auto) 12.8 H 0.0-12.0 % Eosinophils (%) (Auto) 2.1 0.0-7.0 % Basophils (%) (Auto) 0.7 0.0-2.0 % Neutrophils # (Auto) 4.2 1.6-8.6 10 ^3/uL Lymphocytes # (Auto) 0.8 0.4-5.4 10 ^3/uL Monocytes # (Auto) 0.7 0-1.3 10 ^3/uL Eosinophils # (Auto) 0.1 0-0.8 10 ^3/uL Basophils # (Auto) 0 0-0.2 10 ^3/uL Nucleated Red Blood Cells 0.1 % Sodium Level 141 136-145 mmol/L Potassium Level 4.5 3.5-5.1 mmol/L Chloride Level 108 H 98-107 mmol/L Carbon Dioxide Level 24 20-31 mmol/L Anion Gap 9 5-15 Blood Urea Nitrogen 28 H 9-23 mg/dL Creatinine 1.09 0.700-1.30 mg/dL Glomerular Filtration Rate Calc 69 >90 mL/min BUN/Creatinine Ratio 25.7 H 10.0-20.0 Serum Glucose 114 H 74-106 mg/dL Lactic Acid Level 1.2 0.4-2.0 mmol/L Calcium Level 9.4 8.7-10.4 mg/dL Magnesium Level 1.8 1.6-2.6 mg/dL Total Bilirubin 0.5 0.2-1.0 mg/dL Aspartate Amino Transferase (AST) 43 H 13-40 U/L Alanine Aminotransferase (ALT) 29 7-40 U/L Alkaline Phosphatase 140 H 46-116 U/L B-Type Natriuretic Peptide 1937.42 0-100 pg/mL Total Protein 5.8 5.7-8.2 g/dL Albumin 3.6 3.2-4.8 g/dL PATIENT: MARK GARCIA ACCT: [id number] UNIT: [id number] : 1945 LOC: ER ROOM / BED: / AGE / SEX: 79 / M ADM STATUS: REG ER SERVICE 1605 ORDERING PHYSICIAN: JEREL TAYLOR DO PROCEDURE(s): CXRP - CHEST PORTABLE REASON: weak ORDER NUMBER(s): [id number], ACCESSION NUMBER(s): [id number] CHEST RADIOGRAPH Indication: weak Technique: Single frontal view of the chest was obtained Comparison: XY CHEST PORTABLE on DOS: 09/19/24, XY CHEST XRAY 1 VIEW on DOS: 09/18/24, XY CHEST XRAY 1 VIEW on DOS: 09/17/24 FINDINGS: Lines and Tubes: None Lungs: No focal consolidation. Mild interstitial prominence. Indistinctness of the left hemidiaphragm. No pneumothorax. Cardiomediastinal contours: Orrq-zp-nrkjzizi cardiomegaly with aqqs-bw-hylubzix atherosclerotic calcification and uncoiling of the aorta. Bones: No acute osseous abnormality. IMPRESSION: Cardiomegaly with pulmonary vascular congestion and possible trace left sided pleural effusion. Underlying infectious process can not be excluded. SEPSIS Sepsis Screen Date sepsis recognized/suspect: Mar 20, 2025 Time Sepsis recognized/suspect: 1911 Recent Procedure: No On Antibiotic Therapy: No Respiratory Rate >20: No Heart Rate >90: No Temp<36 C (96.8 F) or >38.3 C: No SBP <90 or MAP <65 mmHG: No New Acute Mental Status Change: No Is the patient on CPAP, BIPAP,: No Physician Orders Talent Acquisition Sourcer (03/20/25 ) Urinalysis (03/20/25 16:05) Chest Portable (03/20/25 16:05) Aspirin Tablet (03/21/25 10:00) Atorvastatin (Lipitor) (03/20/25 22:00) Lisinopril Tablet (Zestril Tablet) (03/21/25 10:00) * Cardiology Consult (03/20/25 20:40) Allergies (03/20/25 20:40) Code Status (03/20/25 20:40) Sodium Chloride Lock (Saline Lock Ns) (03/20/25 22:00) Oxygen Per Hour (03/20/25 20:40) Hydrocodone-Acet 5/325mg Tab ([place] 532 (03/20/25 20:45) Ondansetron Hcl (Zofran) (03/20/25 20:45) Docusate Sodium Capsule (Colace Capsule) (03/20/25 20:45) Complete Blood Count (03/21/25 04:00) Comprehensive Metabolic Panel (03/21/25 04:00) Cardiac Diet-2gna,Lofat,Lochol (03/21/25 Breakfast) Condition: Serious (03/20/25 20:40) Acetaminophen Tablet (Tylenol Tablet) (03/20/25 20:45) Bedrest With Bathroom Privileg (03/20/25 20:40) Sequential Compression Device (03/20/25 ) Admit (03/20/25 22:27) Nitroglycerin Sublingual (Ntrostat Subli (03/20/25 22:30) Morphine Sulfate Injection (03/20/25 22:30) Stat Ekg For Chest Pain (03/20/25 22:27) Notify Md Of Changes From Base (03/20/25 22:) Amalgamator For 24 Hours (03/20/25 22:27) Emergency Dysrhythmia Protocol (03/20/25 22:27) Rhythm Strips Once Every Shift (03/20/25 22:27) Oxygen By Nasal Cannula (03/20/25 22:27) Vital Signs Date Time Temp Pulse Resp B/P (MAP) Pulse Ox O2 Delivery O2 Flow Rate FiO2 03/20/25 19:12 97.6 45 13 110/47 (68) 100 97.6 03/20/25 19:12 45 13 100 Nasal Cannula* 2 28 03/20/25 18:15 97.9 45 16 102/42 (62) 100 97.9 03/20/25 16:15 97.9 47 16 105/42 (63) 100 97.9 03/20/25 16:15 100 Nasal Cannula* 2 28 03/20/25 15:45 97.9 54 20 129/63 (85) 96 97.9 03/20/25 15:40 47 Laboratory Tests Test 03/20/25 16:30 Lactic Acid Level 1.2 mmol/L (0.4-2.0) White Blood Count 5.8 10^3/uL (4.4-10.8) Medications Medications Dose Ordered Sig/Wally Route Start Time Stop Time Status Last Admin Dose Admin Atorvastatin Calcium 20 mg HS PO 03/20/25 22:00 03/20/25 22:24 20 MG Levofloxacin 500 mg ONCE ONCE PO 03/20/25 20:30 03/20/25 20:34 DC 03/20/25 20:40 500 MG Sodium Chloride 10 ml Q8HR IV 03/20/25 22:00 03/20/25 22:24 10 ML Assessment/Plan Assessment/Plan Acute on chronic systolic heart failure Bradycardia Defibrillator discharge Pleural effusion Generalized weakness Plan 1. Admit to telemetry unit 2. Breathing treatment 3. Pain control management 4. Management of fluids and electrolytes 5. Consultation for Cardiology 6. Diagnostic tests chest x-ray 7. DVT prophylaxis-on aspirin 8. Repeat labs CBC, CMP in a.m. 9. Continue with current medical management 10. Treatment plan discussed with patient and RN. Patient verbalized understanding. Plan discussed with: Patient, Other (RN) My Orders Orders - CALLI RICHTER DNP Procedure Category Date Status Time Aspirin Tablet PHA 03/21/25 In Process 10:00 Atorvastatin (Lipitor) PHA 03/20/25 In Process 22:00 Lisinopril Tablet PHA 03/21/25 In Process (Zestril Tablet) 10:00 * Cardiology Consult CONS 03/20/25 Transmitted 20:40 Allergies LUIS CARLOS 03/20/25 In Process 20:40 Code Status CODE 03/20/25 Transmitted 20:40 Sodium Chloride Lock PHA 03/20/25 In Process (Saline Lock Ns) 22:00 Oxygen Per Hour RT 03/20/25 Transmitted 20:40 Hydrocodone-Acet PHA 03/20/25 In Process 5/325mg Tab ([place] 20:45 Ondansetron Hcl PHA 03/20/25 In Process (Zofran) 20:45 Docusate Sodium PHA 03/20/25 In Process Capsule (Colace 20:45 Complete Blood Count LAB 03/21/25 Verified 04:00 Comprehensive LAB 03/21/25 Verified Metabolic Panel 04:00 Cardiac DIET 03/21/25 Transmitted Diet-2gna,Lofat,Lochol Breakfast Condition: Serious LUIS CARLOS 03/20/25 In Process 20:40 Acetaminophen Tablet PHA 03/20/25 In Process (Tylenol Tablet) 20:45 Bedrest With Bathroom LUIS CARLOS 03/20/25 In Process Privileg 20:40 Sequential LUIS CARLOS 03/20/25 In Process Compression Device Admit ADMIT 03/20/25 Transmitted 22:27 Nitroglycerin [facility] 03/20/25 Transmitted Sublingual (Ntrostat 22:30 Morphine Sulfate PHA 03/20/25 Transmitted Injection 22:30 Stat Ekg For Chest [facility] 03/20/25 Transmitted Pain 22:27 Notify Md Of Changes [facility] 03/20/25 Transmitted From Base 22:27 Amalgamator For [facility] 03/20/25 Transmitted 24 Hours 22:27 Emergency Dysrhythmia [facility] 03/20/25 Transmitted Protocol 22:27 Rhythm Strips Once [facility] 03/20/25 Transmitted Every Shift 22:27 Oxygen By Nasal RT 03/20/25 Transmitted Cannula 22:27 Problem List: (1) Acute on chronic systolic heart failure (2) Bradycardia (3) Defibrillator discharge (4) Pleural effusion (5) Generalized weakness Date of Service: Mar 20, 2025 Billing Provider: CALLI RICHTER DNP Common Visit Codes: [id number] INP/OBS CARE (HIGH) CALLI RICHTER DNP Mar 20, 2025 22:29
[2025-03-20] MEDS ORDERED: MORPHINE SULFATE INJ 2 MG/ml SYRG IV PRN (22:30)
[2025-03-20] MEDS ORDERED: NITROGLYCERIN 0.4 MG SL TAB SL PRN (22:30)
[2025-03-21] VITALS (13 sets, daily range): BP systolic 98–139; BP diastolic 47–77; PULSE 48–60; RESP 14–18; TEMP 97.6–98.3; O2SAT 93–99
[2025-03-21 01:48] LABS: Urine Protein, UAD Negative (Negative)
[2025-03-21] MEDS: FUROSEMIDE 20 MG/2 ML VIAL IV ONE (01:51)
[2025-03-21] MEDS ORDERED: FURO1TAB33 PO (04:28)
[2025-03-21] MEDS ORDERED: IPRA0.00 IN (04:28)
[2025-03-21] MEDS ORDERED: PANT40TA2 PO (04:28)
[2025-03-21] MEDS ORDERED: TAMS0.4C39 PO (04:28)
[2025-03-21] MEDS ORDERED: CARV6.2551 PO (04:28)
[2025-03-21 07:06] LABS: Alanine Aminotransferase 27 U/L (7-40); Albumin 3.5 g/dL (3.2-4.8); Anion Gap 8 (5-15); BUN/Creatinine Ratio 27.7 (10.0-20.0); Bilirubin, Total 0.7 mg/dL (0.2-1.0); Calcium 9.3 mg/dL (8.7-10.4); Carbon Dioxide 25 mmol/L (20-31); Glucose 84 mg/dL (74-106); Potassium 4.7 mmol/L (3.5-5.1); Sodium 141 mmol/L (136-145); Total Protein 5.7 g/dL (5.7-8.2)
[2025-03-21 07:14] LABS: Alkaline Phosphatase 134 U/L (46-116); Blood Urea Nitrogen 31 mg/dL (9-23); Chloride 108 mmol/L (98-107)
[2025-03-21 07:25] LABS: Hematocrit 31.5 % (41.0-53.0); Hemoglobin 10.1 g/dL (13.5-17.5); Mean Corpuscular Hemoglobin 27.6 pg (28.0-32.0); Mean Corpuscular Volume 85.9 fL (80.0-100.0); Nucleated Red Blood Cells % 0.1 %
[2025-03-21] MEDS: LISINOPRIL 20 MG TAB PO SCH (10:00)
[2025-03-21] MEDS: FUROSEMIDE 40 MG/4 ML VIAL IV SCH (10:58)
--- NOTE | 2025-03-21 12:50 | DVHPN2 ---
Reviewed: Care Plan, H&P, Labs, Medications, Previous Orders, Radiology Changes from previous H/P or p: No Changes Eyes: No Pain, No Vision change, No Conjunctivae inflammation, No Eyelid inflammation, No Other, No Redness ENT: No Ear pain, No Ear discharge, No Nose pain, No Nose discharge, No Nose congestion, No Mouth pain, No Mouth swelling, No Throat pain, No Throat swelling, No Other Cardiovascular: Chest Pain; No Palpitations, No Orthopnea, No Paroxysmal Noc. Dyspnea, No Edema, No Lt Headedness, No Other Respiratory: No Cough, No Dry; Shortness of breath; No SOB with excertion, No Wheezing, No Hemoptysis, No Pleuritic Pain, No Sputum; Other (SOB at rest) Gastrointestinal: No Nausea, No Vomiting, No Abdominal Pain, No Diarrhea, No Constipation, No Melena, No Hematochezia, No Other Genitourinary: No Dysuria, No Frequency, No Incontinence, No Hematuria, No Retention, No Other Musculoskeletal: No other, No neck pain, No shoulder pain, No arm pain, No back pain, No hand pain, No leg pain, No foot pain Skin: No Rash, No Lesions, No Jaundice, No Bruising, No Other Objective Vitals Vital Signs Date Time Temp Pulse Resp B/P (MAP) Pulse Ox O2 Delivery O2 Flow Rate FiO2 03/21/25 10:00 116/44 03/21/25 08:30 97.6 53 16 96 97.6 03/21/25 08:00 Room Air* 0 21 Intake/Output Intake and Output 03/21/25 07:00 Intake Total 0 ml Balance 0 ml Intake Oral 0 ml Medications Current Medications Medications Dose Ordered Sig/Wally Route Start Time Stop Time Status Last Admin Dose Admin Aspirin 81 mg DAILY PO 03/21/25 10:00 03/21/25 10:54 81 MG Atorvastatin Calcium 20 mg HS PO 03/20/25 22:00 03/20/25 22:24 20 MG Lisinopril 20 mg DAILY PO 03/21/25 10:00 Sodium Chloride 10 ml Q8HR IV 03/20/25 22:00 03/21/25 04:44 10 ML Acetaminophen/ Hydrocodone Bitart 1 tab Q4HP PRN PO 03/20/25 20:45 Ondansetron HCl 4 mg Q4HP PRN IV 03/20/25 20:45 Docusate Sodium 100 mg BIDPRN PRN PO 03/20/25 20:45 Acetaminophen 650 mg Q6HP PRN PO 03/20/25 20:45 Nitroglycerin 0.4 mg Q5MINP PRN SL 03/20/25 22:30 Morphine Sulfate 2 mg Q30M PRN IV 03/20/25 22:30 Furosemide 40 mg DAILY IV 03/21/25 10:00 Laboratory Results Laboratory Tests 03/21/25 06:08 Chemistry Test 03/20/25 16:30 03/21/25 06:08 Albumin 3.6 g/dL (3.2-4.8) 3.5 g/dL (3.2-4.8) Calcium Level 9.4 mg/dL (8.7-10.4) 9.3 mg/dL (8.7-10.4) Magnesium Level 1.8 mg/dL (1.6-2.6) Total Protein 5.8 g/dL (5.7-8.2) 5.7 g/dL (5.7-8.2) Cardiac Markers Test 03/20/25 16:30 B-Type Natriuretic Peptide 1937.42 pg/mL (0-100) LFT Test 03/20/25 16:30 03/21/25 06:08 Alanine Aminotransferase (ALT) 29 U/L (7-40) 27 U/L (7-40) Alkaline Phosphatase 140 U/L (46-116) H 134 U/L (46-116) H Aspartate Amino Transferase (AST) 43 U/L (13-40) H 38 U/L (13-40) Total Bilirubin 0.5 mg/dL (0.2-1.0) 0.7 mg/dL (0.2-1.0) HgA1c, TSH Test 03/21/25 06:08 Thyroid Stimulating Hormone (TSH) 1.84 uIU/mL (0.55-4.78) Urinalysis Test 03/21/25 01:25 Urine Color Light-yellow (Yellow) Urine Clarity Clear (Clear) Urine pH 5.0 (5.0-9.0) Urine Specific [place] 1.017 (1.001-1.035) Urine Protein Negative (Negative) Urine Ketones Negative (Negative) Urine Blood Negative /uL (Negative) Urine Nitrite Negative (Negative) Urine Bilirubin Negative (Negative) Urine Urobilinogen Normal mg/dL (Negative) Urine Leukocyte Esterase Negative /uL (Negative) Urine RBC 3 /hpf (0 - 3) Urine Microscopic WBC 2 /HPF (0-3) Urine Squamous Epithelial Cells None seen /hpf (<5) Urine Bacteria None seen /hpf (None Seen) Urine Hyaline Casts Many /lpf (0 - 2) Urine Mucus Few (None Seen) Urine Glucose Normal mg/dL (Normal) Labs and/or images reviewed: Labs reviewed by me, Image(s) reviewed by me Assessment/Plan Assessment/Plan Acute shortness of breath secondary to CHF exacerbation: Cardiology consult by Dr Alicea appreciated placed on Lasix Acute severe systolic CHF exacerbation ejection fraction 10 % BNP 1937, Lasix GERD Acute COPD exacerbation BPH Hypertension Possible Pacemaker discharge Bradycardia Hypercholesterolemia History of CVA History of [place] History of suicidal attempt Time spent 70 minutes Advanced care planning time 20 minutes Patient is full code Pt Came from [facility] Plan discussed with: Patient Date of Service: Mar 21, 2025 Billing Provider: MERY GUERRERO MD Common Visit Codes: [id number] CARE 30-74 MIN MERY GUERRERO MD Mar 21, 2025 12:50
[2025-03-21] MEDS ORDERED: ALBUTEROL SULF 2.5 MG/0.5ML(0.5%) NEB SOLN NEB PRN (13:00)
--- NOTE | 2025-03-21 13:01 | DVHINCON2 ---
Date Seen: Mar 21, 2025 Referring Physician Mel Reason for Consultation Bradycardia, CHF, History of Present Illness 79-year-old male with PMH for CVA with right-sided hemiparesis, COPD on home O2, HFrEF, severe cardiomyopathy EF 10-15% with Zoll LifeVest, history of methamphetamine abuse, CAD s/p 2VCABG, previous stents, paroxysmal atrial fibrillation, HTN, dyslipidemia presents to the hospital with chest tightness and pain, shortness of breath. Patient at [facility] stating he was having increased shortness of breath chest tightness and states he felt that his sole LifeVest may have went off to 2 or 3 times. Upon evaluation in the ER patient had BNP of 1937, troponin trending negative x3, CXR showing pulmonary vascular congestion with trace left-sided pleural effusion. EKG reviewed and showed junctional rhythm at 47 beats per minute, RBBB, LVH. Past Medical History As stated above Past Surgical History As stated above Family History: FH: heart disease G8 FATHER Social History Recently quit tobacco, amphetamine use. Denies alcohol abuse. Allergies: Coded Allergies: Erythromycin (Verified Allergy, Unknown, 09/16/24) Penicillins (Verified Allergy, Unknown, 09/16/24) Tetracycline (Verified Allergy, Unknown, 09/16/24) Home Meds Active Scripts Apixaban Base (ELIQUIS) 5 Mg Tab, 5 MG PO BID for 30 Days, #60 TAB Prov:MARBELLA BUSCH BUCKET TURNER 09/25/24 Reported Medications Tamsulosin Hcl (Tamsulosin Hcl) 0.4 Mg Cap, 0.4 MG PO HS, CAP 03/21/25 Pantoprazole Sodium Sesquihydr (Protonix) 40 Mg Tab, 40 MG PO DAILY, #30 TAB 03/21/25 Furosemide (Lasix) 20 Mg Tb, 20 MG PO DAILY, TAB 03/21/25 Ipratropium-Albuterol (Ipratropium Eunice/Albut) 1 Michell Michell, 1 MICHELL IN Q6HP PRN for SHORTNESS OF BREATH, ML 03/21/25 Carvedilol (Carvedilol) 6.25 Mg Tab, 6.25 MG PO BID, TAB 03/21/25 Aspirin (Aspirin Low Dose) 81 Mg Tab, 1 TAB PO DAILY 09/16/24 Atorvastatin Calcium (ATORVASTATIN CALCIUM) 40 Mg Tab, 1 TAB PO HS 09/16/24 Lisinopril (Lisinopril) 20 Mg Tab, 5 MG PO DAILY 09/16/24 Current Medications Current Medications Medications (Trade) Dose Ordered Sig/Wally Route PRN Reason Start Time Stop Time Status Last Admin Aspirin 81 mg DAILY PO 03/21/25 10:00 03/21/25 10:54 Atorvastatin Calcium (Lipitor) 20 mg HS PO 03/20/25 22:00 03/20/25 22:24 Lisinopril (Zestril Tablet) 20 mg DAILY PO 03/21/25 10:00 Sodium Chloride (Saline Lock Ns) 10 ml Q8HR IV 03/20/25 22:00 03/21/25 04:44 Acetaminophen/ Hydrocodone Bitart (Dania 5/325MG Tab) 1 tab Q4HP PRN PO MODERATE PAIN (4-6 PAIN SCALE) 03/20/25 20:45 Ondansetron HCl (Zofran) 4 mg Q4HP PRN IV NAUSEA / VOMITING 03/20/25 20:45 Docusate Sodium (Colace Capsule) 100 mg BIDPRN PRN PO FOR CONSTIPATION 03/20/25 20:45 Acetaminophen (Tylenol Tablet) 650 mg Q6HP PRN PO PAIN SCALE 1-3 OR TEMP>100.4 03/20/25 20:45 Nitroglycerin (Ntrostat Sublingual) 0.4 mg Q5MINP PRN SL FOR CHEST PAIN 03/20/25 22:30 Morphine Sulfate 2 mg Q30M PRN IV FOR CHEST PAIN 03/20/25 22:30 Furosemide (Lasix Injection) 40 mg DAILY IV 03/21/25 10:00 Review of Systems Constitutional: No: Fever, Chills, Sweats, Weakness, Malaise, Other Eyes: No: Pain, Vision change, Conjunctivae inflammation, Eyelid inflammation, Other, Redness ENT: No: Ear pain, Ear discharge, Nose pain, Nose discharge, Nose congestion, Mouth pain, Mouth swelling, Throat pain, Throat swelling, Other Respiratory: No: Cough, Dry, Shortness of breath, SOB with exertion, Wheezing, Hemoptysis, Pleuritic Pain, Sputum, Wheezing, Other Cardiovascular: ; No: Chest Pain Palpitations, Orthopnea, Paroxysmal Noc. Dys pnea, Edema, Lt Headedness, Other Gastrointestinal: No: Nausea, Vomiting, Abdominal Pain, Diarrhea, Constipation, Melena, Hematochezia, Other Genitourinary: No Dysuria, No Frequency, No Incontinence, No Hematuria, No Retention, No Other Musculoskeletal: neck pain; No: other, shoulder pain, arm pain, back pain, hand pain, leg pain, foot pain Skin: No: Rash, Lesions, Jaundice, Bruising, Other Neurological: Other (Dizziness, headache.); No: Weakness, Numbness, Incoordination, Change in speech, Confusion, Seizures Vital Signs Vital Signs Date Time Temp Pulse Resp B/P (MAP) Pulse Ox O2 Delivery O2 Flow Rate FiO2 03/21/25 10:00 116/44 03/21/25 08:30 97.6 53 16 96 97.6 03/21/25 08:00 Room Air* 0 21 Physical Exam General appearance: Ill-appearing, in acute distress. HEENT: Exam shows: Normocephalic, atraumatic, PERRLA, EOMI Neck: Supple, no bruits Chest: Equal chest excursion bilaterally. Breath sounds diminished, rales/ wheezes. Heart: Rhythm: Regular rate; no murmur or gallop Abdomen: Exam shows: Soft, nontender, nondistended Musculoskeletal: No clubbing, no cyanosis, no lower extremity edema Dermatology: Skin warm, moist. Neurological: Exam shows: Alert and oriented x4, normal speech Available prior records, labs, EKG, rhythm strips reviewed and interpreted Labs/Diagnostic Data Labs Test 03/21/25 06:08 03/21/25 01:25 03/20/25 19:37 03/20/25 16:30 Range/Units White Blood Count 6.3 4.4-10.8 10^3/uL Red Blood Count 3.67 L 4.5-5.90 10^6/uL Hemoglobin 10.1 L 13.5-17.5 g/dL Hematocrit 31.5 L 41.0-53.0 % Mean Corpuscular Volume 85.9 80.0-100.0 fL Mean Corpuscular Hemoglobin 27.6 L 28.0-32.0 pg Mean Corpuscular Hemoglobin Concent 32.1 32.0-36.0 g/dL Red Cell Distribution Width 19.3 H 11.8-14.3 % Platelet Count 220 140-450 10^3/uL Mean Platelet Volume 8.8 6.9-10.8 fL Neutrophils (%) (Auto) 64.6 37.0-80.0 % Lymphocytes (%) (Auto) 17.5 10.0-50.0 % Monocytes (%) (Auto) 15.0 H 0.0-12.0 % Eosinophils (%) (Auto) 2.3 0.0-7.0 % Basophils (%) (Auto) 0.6 0.0-2.0 % Neutrophils # (Auto) 4.1 1.6-8.6 10 ^3/uL Lymphocytes # (Auto) 1.1 0.4-5.4 10 ^3/uL Monocytes # (Auto) 0.9 0-1.3 10 ^3/uL Eosinophils # (Auto) 0.1 0-0.8 10 ^3/uL Basophils # (Auto) 0 0-0.2 10 ^3/uL Nucleated Red Blood Cells 0.1 % Sodium Level 141 136-145 mmol/L Potassium Level 4.7 3.5-5.1 mmol/L Chloride Level 108 H 98-107 mmol/L Carbon Dioxide Level 25 20-31 mmol/L Anion Gap 8 5-15 Blood Urea Nitrogen 31 H 9-23 mg/dL Creatinine 1.12 0.700-1.30 mg/dL Glomerular Filtration Rate Calc 67 >90 mL/min BUN/Creatinine Ratio 27.7 H 10.0-20.0 Serum Glucose 84 74-106 mg/dL Calcium Level 9.3 8.7-10.4 mg/dL Total Bilirubin 0.7 0.2-1.0 mg/dL Aspartate Amino Transferase (AST) 38 13-40 U/L Alanine Aminotransferase (ALT) 27 7-40 U/L Alkaline Phosphatase 134 H 46-116 U/L Total Protein 5.7 5.7-8.2 g/dL Albumin 3.5 3.2-4.8 g/dL Thyroid Stimulating Hormone (TSH) 1.84 0.55-4.78 uIU/mL Urine Color Light-yellow Yellow Urine Clarity Clear Clear Urine pH 5.0 5.0-9.0 Urine Specific [place] 1.017 1.001-1.035 Urine Protein Negative Negative Urine Ketones Negative Negative Urine Blood Negative Negative /uL Urine Nitrite Negative Negative Urine Bilirubin Negative Negative Urine Urobilinogen Normal Negative mg/dL Urine Leukocyte Esterase Negative Negative /uL Urine RBC 3 0 - 3 /hpf Urine Microscopic WBC 2 0-3 /HPF Urine Squamous Epithelial Cells None seen <5 /hpf Urine Bacteria None seen None Seen /hpf Urine Hyaline Casts Many 0 - 2 /lpf Urine Mucus Few None Seen Urine Glucose Normal Normal mg/dL Troponin I High Sensitivity 29 </=54 ng/L Lactic Acid Level 1.2 0.4-2.0 mmol/L Magnesium Level 1.8 1.6-2.6 mg/dL B-Type Natriuretic Peptide 1937.42 0-100 pg/mL Assessment * Junctional Rhythm, Sinus Bradycardia - discontinued home med Coreg. Continue telemetry monitoring. Currently resolved with telemetry consistent with sinus rhythm with first-degree AV block at 63 beats per minute. Normal TSH. * Chest Pain, Suspected Zoll Life vest discharge - troponins negative x3. Follow up interrogation of zone LifeVest. Check echo. * Paroxysmal Atrial Fibrillation - currently sinus rhythm. Continue monitoring. We will hold off on AV natividad blockers due to recent episode of sinus bradycardia/junctional rhythm. Continue full-dose Lovenox 1 MG/kg twice daily, plan to transition to home dose Eliquis 5 mg p.o. twice daily upon discharge. * Acute on Chronic HFrEF - continue diuresis with Lasix 40 mg IV daily. Monitor strict I&Os. 1.5 L Fluid restriction. * Severe Cardiomyopathy - EF 10- 15%. ZoLL life vest in place. Follow up interrogation. Continued outpatient follow up for possible ICD placement. Check echo. Unable to tolerate EGD MT with AV natividad blockers due to noted junctional arrhythmia and bradycardia. Continue Elijah. * Acute on Chronic respiratory failure, COPD exacerbation, CHF - continue diuresing, on bronchodilators. Continue management per primary team. * CAD s/p 2V CABG, Previous Stents - continue on aspirin and statin Case Discussed with Dr Alicea. Continue tele monitoring. Diuresis and fluid restirction. Follow up ZOLL life vest interrogation. Follow up ECHO. Critical care, time spent: 44 minutes This medical document was created using an electronic medical record system with voice recognition software and computerized dictation system. Although this document has been carefully reviewed, there might still be some phonetic and typographical errors. Occasional wrong-word or ``sound-alike substitutions may have occurred due to the inherent limitations of voice recognition software. These areas are purely typographical due to imperfections of the software programs and do not reflect any compromise in the patient's medical care. Please read the chart carefully and recognize, using context, where these substitutions have occurred. Thank you for allowing me to participate in the management of this patient. The treatment plan was discussed with and agreed upon by patient/family including requesting consultants and ordering of imaging/procedures. Plan discussed with: Patient NYHA Physical activity limitations: Class3(Marked) ordinary Date of Service: Mar 21, 2025 Billing Provider: STEPHANIE CURTIS Cardiology Common Codes: [id number] INP/OBS CARE (High), [id number] CARE 30-74 MIN STEPHANIE CURTIS Mar 21, 2025 13:01
[2025-03-21 13:42] LABS: Amphetamine Screen, Urine Neg (NEGATIVE); Barbiturate Scree,Urine Neg (NEGATIVE); Benzodiazephine Screen, Urine Neg (NEGATIVE); Cannabinoid Screen, Urine Neg (NEGATIVE); Cocaine Screen, Urine Neg (NEGATIVE); Opiate Scree,Urine Neg (NEGATIVE); Phencyclidine Screen, Urine Neg (NEGATIVE)
[2025-03-21] MEDS: ALBUTEROL SULF 2.5 MG/0.5ML(0.5%) NEB SOLN NEB PRN (14:21)
--- NOTE | 2025-03-21 19:05 | DVHSR ---
APPROVED REPORT EXAM: Two-dimensional and M-mode echocardiogram with Doppler and color Doppler. Blood Pressure: 131/73 mmHg INDICATION chf Surgery/Intervention CABG: RISK FACTORS Height: 5'4, Weight: 157 DIMENSIONS LVDd5.5 (3.8-5.7cm)LA (2D)5.1 (1.9-4.0cm)Aortic Root3.6 (2.0-3.7cm) LVDs4.6 (2.5-4.0cm)LA (MM) (1.9-4.0cm)Aortic Cusp Exc1.3 (1.5-2.0cm) EF (%) 30.0 (55-70%)Rt. Atrium6.0 (1.9-4.0cm)Asc. Aorta cm IVSd1.1 (0.7-1.1cm)RV (D) (1.8-2.4cm) PWd0.7 (0.7-1.1cm) Mitral Valve MitralMitral Stenosis E wave1.23m/sMV Mean GR.mmHg A wave0.29m/sMV Peak GR.69mmHg E/A ratio4.22D MVAcm2 DECEL [id number] 1/2 Timems Aortic Valve Aortic ValveAortic Stenosis V11.34m/Radha Mean GR.6mmHg V21.75m/Radha Peak GR.12mmHg LVOT Diameter2.2 (1.8-2.4cm)Doppler AVA2.91cm2 AI P 1/2 [id number] Pulmonic Valve V20.98m/s Tricuspid Valve TR Velocity2.93m/s [id number] Conclusion Left ventricle: Left ventricle was dilated with reduced systolic function. LVEF was 30-35%. Diffus e hypokinesis of left ventricle was seen. Restrictive filling of the left ventricular diastolic func tion was observed. Right ventricle was dilated with reduced systolic function. Left atrium was moderately dilated. Rig ht atrium was markedly dilated. Aortic valve was not well visualized. Mild aortic insufficiency was seen. There was no aortic steno sis. Mild mitral regurgitation was observed. Moderate tricuspid regurgitation was observed. Mild p ulmonary valve insufficiency was seen. Right ventricular systolic pressure was assessed at 54 mm Hg. There was no pericardial effusion.
[2025-03-21] MEDS: ENOXAPARIN SOD 100 MG/1 ML SYRINGE SC SCH (21:42)
[2025-03-22] VITALS (8 sets, daily range): BP systolic 110–161; BP diastolic 65–95; PULSE 52–72; RESP 16–18; TEMP 37.3; O2SAT 90–99
--- NOTE | 2025-03-22 12:02 | DVHPN2 ---
Consult Progress Note Subjective Review of Systems: RESPIRATORY:Abnormal (sob) Objective vital signs Vital Sign Date Time Temp Pulse Resp B/P (MAP) Pulse Ox O2 Delivery O2 Flow Rate FiO2 03/22/25 10:18 97 Room Air* 0 21 03/22/25 10:09 161/95 03/22/25 08:30 97.8 59 18 97.8 Total Intake and Output 03/21/25 03/21/25 03/22/25 15:00 23:00 07:00 Intake Total 230 ml 500 ml Output Total 700 ml 700 ml Balance 230 ml -700 ml -200 ml medications Current Medications Medications Dose Ordered Sig/Wally Route Start Time Stop Time Status Last Admin Dose Admin Aspirin 81 mg DAILY PO 03/21/25 10:00 03/22/25 10:08 81 MG Atorvastatin Calcium 20 mg HS PO 03/20/25 22:00 03/21/25 21:42 20 MG Lisinopril 20 mg DAILY PO 03/21/25 10:00 03/22/25 10:08 20 MG Sodium Chloride 10 ml Q8HR IV 03/20/25 22:00 03/22/25 06:21 10 ML Acetaminophen/ Hydrocodone Bitart 1 tab Q4HP PRN PO 03/20/25 20:45 Ondansetron HCl 4 mg Q4HP PRN IV 03/20/25 20:45 Docusate Sodium 100 mg BIDPRN PRN PO 03/20/25 20:45 Acetaminophen 650 mg Q6HP PRN PO 03/20/25 20:45 Nitroglycerin 0.4 mg Q5MINP PRN SL 03/20/25 22:30 Morphine Sulfate 2 mg Q30M PRN IV 03/20/25 22:30 Furosemide 40 mg DAILY IV 03/21/25 10:00 03/22/25 10:09 40 MG Enoxaparin Sodium 70 mg Q12HR SC 03/21/25 22:00 03/22/25 10:09 70 MG Albuterol 2.5 mg Q4HPRN PRN NEB 03/21/25 13:00 03/21/25 14:21 2.5 MG Examination: CVS:Normal (Telemetry reviewed consistent with sinus bradycardia 54 beats per minute) laboratory and microbiology Laboratory Tests 03/21/25 06:08 Test 03/21/25 06:08 Range/Units Serum Glucose 84 74-106 mg/dL Problem List/Assessment/Plan Problem List/Assessment/Plan Assessment * Junctional Rhythm, Sinus Bradycardia - resolved. discontinued home med Coreg. Continue telemetry monitoring. Normal TSH. * Chest Pain, Suspected Zoll Life vest discharge - troponins negative x3. Follow up interrogation of zoll LifeVest was negative for any abnormal irregularities/discharges. 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 * Paroxysmal Atrial Fibrillation - currently sinus rhythm. Continue monitoring. We will hold off on AV natividad blockers due to recent episode of sinus bradycardia/junctional rhythm. Continue full-dose Lovenox 1 MG/kg twice daily, plan to transition to home dose Eliquis 5 mg p.o. twice daily upon discharge. * Acute on Chronic HFrEF - continue diuresis with Lasix 40 mg IV daily. Monitor strict I&Os. 1.5 L Fluid restriction. Plan to discharge on Lasix 40 mg p.o. daily. * Severe Cardiomyopathy - EF slightly improved at 30-35%.. ZoLL life vest in place. Continued outpatient follow up for possible ICD placement. Unable to tolerate GD MT with AV natividad blockers due to noted junctional arrhythmia and bradycardia. Continue Elijah. * Acute on Chronic respiratory failure, COPD exacerbation, CHF - continue diuresing, on bronchodilators. Continue management per primary team. * CAD s/p 2V CABG, Previous Stents - continue on aspirin and statin Case Discussed with Dr Alicea. Continue tele monitoring. Diuresis and fluid restriction. Follow up ZOLL life vest interrogation. Slight improvement on echo LVEF 30-35%. Continue outpatient cardiology follow up. This medical document was created using an electronic medical record system with voice recognition software and computerized dictation system. Although this document has been carefully reviewed, there might still be some phonetic and typographical errors. Occasional wrong-word or ``sound-alike substitutions may have occurred due to the inherent limitations of voice recognition software. These areas are purely typographical due to imperfections of the software programs and do not reflect any compromise in the patient's medical care. Please read the chart carefully and recognize, using context, where these substitutions have occurred. Thank you for allowing me to participate in the management of this patient. The treatment plan was discussed with and agreed upon by patient/family including requesting consultants and ordering of imaging/procedures. Plan discussed with: Patient Date of Service: Mar 22, 2025 Billing Provider: STEPHANIE CURTIS Common Visit Codes: [id number] INP/OBS CARE(HIGH) STEPHANIE CURTIS Mar 22, 2025 12:02
--- NOTE | 2025-03-22 12:13 | DVHPN2 ---
Reviewed: Care Plan, H&P, Labs, Medications, Previous Orders, Radiology Changes from previous H/P or p: No Changes Eyes: No Pain, No Vision change, No Conjunctivae inflammation, No Eyelid inflammation, No Other, No Redness ENT: No Ear pain, No Ear discharge, No Nose pain, No Nose discharge, No Nose congestion, No Mouth pain, No Mouth swelling, No Throat pain, No Throat swelling, No Other Cardiovascular: Chest Pain; No Palpitations, No Orthopnea, No Paroxysmal Noc. Dyspnea, No Edema, No Lt Headedness, No Other Respiratory: No Cough, No Dry; Shortness of breath; No SOB with excertion, No Wheezing, No Hemoptysis, No Pleuritic Pain, No Sputum; Other (SOB at rest) Gastrointestinal: No Nausea, No Vomiting, No Abdominal Pain, No Diarrhea, No Constipation, No Melena, No Hematochezia, No Other Genitourinary: No Dysuria, No Frequency, No Incontinence, No Hematuria, No Retention, No Other Musculoskeletal: No other, No neck pain, No shoulder pain, No arm pain, No back pain, No hand pain, No leg pain, No foot pain Skin: No Rash, No Lesions, No Jaundice, No Bruising, No Other Objective Vitals Vital Signs Date Time Temp Pulse Resp B/P (MAP) Pulse Ox O2 Delivery O2 Flow Rate FiO2 03/22/25 10:18 97 Room Air* 0 21 03/22/25 10:09 161/95 03/22/25 08:30 97.8 59 18 97.8 Intake/Output Intake and Output 03/22/25 07:00 Intake Total 730 ml Output Total 1400 ml Balance -670 ml Intake Oral 730 ml Output Urine Total 1400 ml Stool Total 0 ml # Bowel Movements 1 Medications Current Medications Medications Dose Ordered Sig/Wally Route Start Time Stop Time Status Last Admin Dose Admin Aspirin 81 mg DAILY PO 03/21/25 10:00 03/22/25 10:08 81 MG Atorvastatin Calcium 20 mg HS PO 03/20/25 22:00 03/21/25 21:42 20 MG Lisinopril 20 mg DAILY PO 03/21/25 10:00 03/22/25 10:08 20 MG Sodium Chloride 10 ml Q8HR IV 03/20/25 22:00 03/22/25 06:21 10 ML Acetaminophen/ Hydrocodone Bitart 1 tab Q4HP PRN PO 03/20/25 20:45 Ondansetron HCl 4 mg Q4HP PRN IV 03/20/25 20:45 Docusate Sodium 100 mg BIDPRN PRN PO 03/20/25 20:45 Acetaminophen 650 mg Q6HP PRN PO 03/20/25 20:45 Nitroglycerin 0.4 mg Q5MINP PRN SL 03/20/25 22:30 Morphine Sulfate 2 mg Q30M PRN IV 03/20/25 22:30 Furosemide 40 mg DAILY IV 03/21/25 10:00 03/22/25 10:09 40 MG Enoxaparin Sodium 70 mg Q12HR SC 03/21/25 22:00 03/22/25 10:09 70 MG Albuterol 2.5 mg Q4HPRN PRN NEB 03/21/25 13:00 03/21/25 14:21 2.5 MG Laboratory Results Laboratory Tests 03/21/25 06:08 Urinalysis Test 03/21/25 01:25 Urine Color Light-yellow (Yellow) Urine Clarity Clear (Clear) Urine pH 5.0 (5.0-9.0) Urine Specific [place] 1.017 (1.001-1.035) Urine Protein Negative (Negative) Urine Ketones Negative (Negative) Urine Blood Negative /uL (Negative) Urine Nitrite Negative (Negative) Urine Bilirubin Negative (Negative) Urine Urobilinogen Normal mg/dL (Negative) Urine Leukocyte Esterase Negative /uL (Negative) Urine RBC 3 /hpf (0 - 3) Urine Microscopic WBC 2 /HPF (0-3) Urine Squamous Epithelial Cells None seen /hpf (<5) Urine Bacteria None seen /hpf (None Seen) Urine Hyaline Casts Many /lpf (0 - 2) Urine Mucus Few (None Seen) Urine Glucose Normal mg/dL (Normal) Labs and/or images reviewed: Labs reviewed by me, Image(s) reviewed by me Assessment/Plan Assessment/Plan Acute shortness of breath secondary to CHF exacerbation: Cardiology consult by Dr Alicea appreciated placed on Lasix Acute severe systolic CHF exacerbation ejection fraction 10 % BNP 1937, Lasix, pt on LifeVest GERD Acute COPD exacerbation BPH Hypertension Possible Pacemaker discharge Bradycardia Hypercholesterolemia History of CVA History of [place] History of suicidal attempt Time spent 60 minutes Advanced care planning time 20 minutes Patient is full code Pt Came [facility] Plan discussed with: Patient My Orders Orders - MERY GUERRERO MD Procedure Category Date Status Time Cardiac DIET 03/21/25 Transmitted Diet-2gna,Lofat,Lochol Lunch Albuterol Medneb PHA 03/21/25 In Process (Ventolin Medneb) 13:00 Date of Service: Mar 22, 2025 Billing Provider: MERY GUERRERO MD Common Visit Codes: [id number] INP/OBS CARE(HIGH) MERY GUERRERO MD Mar 22, 2025 12:13
--- NOTE | 2025-03-22 12:20 | DVHDS2 ---
Discharge Summary Date of Admission Mar 20, 2025 at 22:27 Date of Discharge: Mar 22, 2025 Admitting Diagnosis Shortness of breath Wounds: None Labs/Diagnostic Data: Laboratory Results Test 03/21/25 06:08 03/21/25 01:25 03/20/25 19:37 03/20/25 16:30 White Blood Count 6.3 10^3/uL (4.4-10.8) Red Blood Count 3.67 10^6/uL (4.5-5.90) Hemoglobin 10.1 g/dL (13.5-17.5) Hematocrit 31.5 % (41.0-53.0) Mean Corpuscular Volume 85.9 fL (80.0-100.0) Mean Corpuscular Hemoglobin 27.6 pg (28.0-32.0) Mean Corpuscular Hemoglobin Concent 32.1 g/dL (32.0-36.0) Red Cell Distribution Width 19.3 % (11.8-14.3) Platelet Count 220 10^3/uL (140-450) Mean Platelet Volume 8.8 fL (6.9-10.8) Neutrophils (%) (Auto) 64.6 % (37.0-80.0) Lymphocytes (%) (Auto) 17.5 % (10.0-50.0) Monocytes (%) (Auto) 15.0 % (0.0-12.0) Eosinophils (%) (Auto) 2.3 % (0.0-7.0) Basophils (%) (Auto) 0.6 % (0.0-2.0) Neutrophils # (Auto) 4.1 10 ^3/uL (1.6-8.6) Lymphocytes # (Auto) 1.1 10 ^3/uL (0.4-5.4) Monocytes # (Auto) 0.9 10 ^3/uL (0-1.3) Eosinophils # (Auto) 0.1 10 ^3/uL (0-0.8) Basophils # (Auto) 0 10 ^3/uL (0-0.2) Nucleated Red Blood Cells 0.1 % Sodium Level 141 mmol/L (136-145) Potassium Level 4.7 mmol/L (3.5-5.1) Chloride Level 108 mmol/L (98-107) Carbon Dioxide Level 25 mmol/L (20-31) Anion Gap 8 (5-15) Blood Urea Nitrogen 31 mg/dL (9-23) Creatinine 1.12 mg/dL (0.700-1.30) Glomerular Filtration Rate Calc 67 mL/min (>90) BUN/Creatinine Ratio 27.7 (10.0-20.0) Serum Glucose 84 mg/dL (74-106) Calcium Level 9.3 mg/dL (8.7-10.4) Total Bilirubin 0.7 mg/dL (0.2-1.0) Aspartate Amino Transferase (AST) 38 U/L (13-40) Alanine Aminotransferase (ALT) 27 U/L (7-40) Alkaline Phosphatase 134 U/L (46-116) Total Protein 5.7 g/dL (5.7-8.2) Albumin 3.5 g/dL (3.2-4.8) Thyroid Stimulating Hormone (TSH) 1.84 uIU/mL (0.55-4.78) Urine Color Light-yellow (Yellow) Urine Clarity Clear (Clear) Urine pH 5.0 (5.0-9.0) Urine Specific [place] 1.017 (1.001-1.035) Urine Protein Negative (Negative) Urine Ketones Negative (Negative) Urine Blood Negative /uL (Negative) Urine Nitrite Negative (Negative) Urine Bilirubin Negative (Negative) Urine Urobilinogen Normal mg/dL (Negative) Urine Leukocyte Esterase Negative /uL (Negative) Urine RBC 3 /hpf (0 - 3) Urine Microscopic WBC 2 /HPF (0-3) Urine Squamous Epithelial Cells None seen /hpf (<5) Urine Bacteria None seen /hpf (None Seen) Urine Hyaline Casts Many /lpf (0 - 2) Urine Mucus Few (None Seen) Urine Glucose Normal mg/dL (Normal) Urine Opiates Screen Neg (NEGATIVE) Urine Fentanyl Screen Neg (NEGATIVE) Urine Barbiturates Screen Neg (NEGATIVE) Urine Phencyclidine Screen Neg (NEGATIVE) Urine Amphetamines Screen Neg (NEGATIVE) Urine Benzodiazepines Screen Neg (NEGATIVE) Urine Cocaine Screen Neg (NEGATIVE) Urine Cannabinoids Screen Neg (NEGATIVE) Troponin I High Sensitivity 29 ng/L (</=54) Lactic Acid Level 1.2 mmol/L (0.4-2.0) Magnesium Level 1.8 mg/dL (1.6-2.6) B-Type Natriuretic Peptide 1937.42 pg/mL (0-100) Other Laboratory Tests 03/21/25 06:08 Brief Hx & Hospital Course: 81-year-old male with a history of COPD congestive heart failure hypotension BPH LifeVest history of bradycardia hypercholesterolemia CVA [place] came in for shortness of breaths found to have CHF exacerbation seen by teacher [facility] Dr. Alicea placed on Lasix ejection fraction 10 percent for which he is on pacemaker. BNP 1936. Comorbid conditions addressed appropriately . patient has possibly had discharged from [facility] which has been interrogated and now working appropriately . Paroxysmal AFib treated with Lovenox with transition to Eliquis. The patient is requesting to be discharged back to [facility] today as he has an appointment tomorrow morning with [facility] Condition stable but poor at the time of discharge Consults/Reason for consult Cardiology Dr. Alicea Operations or Procedures None Condition at Discharge: Fair Final Diagnosis/Problems List Acute shortness of breath secondary to CHF exacerbation: Cardiology consult by Dr Alicea appreciated placed on Lasix Acute severe systolic CHF exacerbation ejection fraction 10 % BNP 1937, Lasix, pt on LifeVest GERD Acute COPD exacerbation BPH Hypertension Possible Pacemaker discharge Bradycardia Hypercholesterolemia History of CVA History of [place] History of suicidal attempt Discharge Disposition: [facility] Facility Discharge Instruct/Medications Diet: Cardiac 2g Na,low cholest Activity: Light activity Follow Up/Referral: Follow up with the residential Medications: see list Scheduled Apixaban Base (Eliquis), 5 MG PO BID Aspirin (Aspirin Low Dose), 1 TAB PO DAILY, (Reported) Atorvastatin Calcium (Atorvastatin Calcium), 1 TAB PO HS, (Reported) Carvedilol (Carvedilol), 6.25 MG PO BID, (Reported) Furosemide (Lasix), 20 MG PO DAILY, (Reported) Lisinopril (Lisinopril), 5 MG PO DAILY, (Reported) Pantoprazole Sodium Sesquihydr (Protonix), 40 MG PO DAILY, (Reported) Tamsulosin Hcl (Tamsulosin Hcl), 0.4 MG PO HS, (Reported) Scheduled PRN Ipratropium-Albuterol (Ipratropium [place]/Albut), 1 MICHELL IN Q6HP PRN for SHORTNESS OF BREATH, (Reported) 39 (Time taken for discharge summary 39 minutes) Discharge Statement: "Patient was advised to return to the ER or call 911 if any headaches, dizziness, shortness of breath, chest pain, abdominal pain, bleeding, fevers, or worsening of medical condition. Patient was counseled about treatment plan, medications, possible side effects, patientverbalized understanding. All questions were answered to the best of my ability. This discharge took greater then 30 minutes in planning, reviewing documentation, counseling the patient, and discussing with other team members." ASSESSMENT ASSESSMENT Hospital Course Improved Assessment Acute shortness of breath secondary to CHF exacerbation: Cardiology consult by Dr Alicea appreciated placed on Lasix Acute severe systolic CHF exacerbation ejection fraction 10 % BNP 193, Lasix, pt on LifeVest GERD Acute COPD exacerbation BPH Hypertension Possible Pacemaker discharge Bradycardia Hypercholesterolemia History of CVA History of [place] History of suicidal attempt Date of Service: Mar 22, 2025 Billing Provider: MERY GUERRERO MD Common Visit Codes: [id number] DISCH DAY >30min MERY GUERRERO MD Mar 22, 2025 12:20
[2025-03-22 16:05] LABS: COVID19 ANTIGEN SOFIA FIA NEGATIVE (NEGATIVE)
== END 2025-03-22 17:10 | DRG 291 ==
LOC: EDUNIT# 15:34 → EDBD 15:34 → ER 15:34 → OVERFLOW 22:27 → TELE-WESTW 03-21 03:33
PROVIDERS: ADMIT Nurse Practitioner Family; ATTEND Nurse Practitioner Family
DX: I11.0 Hypertensive heart disease with heart failure (principal); I50.23 Acute on chronic systolic (congestive) heart failure; J96.20 Acute and chronic respiratory failure, unspecified whether with hypoxia or hypercapnia; J44.1 Chronic obstructive pulmonary disease with (acute) exacerbation; I69.351 Hemiplegia and hemiparesis following cerebral infarction affecting right dominant side; I42.0 Dilated cardiomyopathy; I44.0 Atrioventricular block, first degree; K21.9 Gastro-esophageal reflux disease without esophagitis; I48.0 Paroxysmal atrial fibrillation; E78.00 Pure hypercholesterolemia, unspecified; Z20.822 Contact with and (suspected) exposure to COVID-19; N40.0 Benign prostatic hyperplasia without lower urinary tract symptoms; I25.10 Atherosclerotic heart disease of native coronary artery without angina pectoris; Z79.01 Long term (current) use of anticoagulants; I25.2 Old myocardial infarction; Z99.81 Dependence on supplemental oxygen; Z95.5 Presence of coronary angioplasty implant and graft; Z95.1 Presence of aortocoronary bypass graft; Z91.51 Personal history of suicidal behavior; Z88.1 Allergy status to other antibiotic agents; Z88.0 Allergy status to penicillin; Z87.891 Personal history of nicotine dependence
CPT/HCPCS: 36415; 71045; 80053; 80307; 81001; 83605; 83735; 83880; 84443; 84484; 85025; 87081; 87426; 93005; 93306; 94640; G0378